=== PATIENT | male | born 1965 | race Caucasian/White ===

== ENCOUNTER 2023-05-17 03:26 | Inpatient (IN) | payer SELFPAY ==
[2023-05-17 03:53] LABS: Absolute Lymphocytes (CBC) 7.7 K/uL (0.7-4.9); Hematocrit 43.1 % (39.6-49.0); Lymphocytes % 51.1 % (15.3-44.8); MCV 89.6 fL (80-100); MPV 7.6 fL (7.6-11.3); Platelets 282 thou/uL (152-406)
[2023-05-17 03:58] LABS: Protime INR 1.11
[2023-05-17] MEDS ORDERED: MORPHINE 4 MG/ML SYR ONE (04:02)
[2023-05-17] MEDS ORDERED: ONDANSETRON 4 MG/2 ML VIAL ONE (04:02)
[2023-05-17] MEDS ORDERED: NA CHLORIDE 0.9% 1,000 ML ONE (04:02)
[2023-05-17 04:14] LABS: Albumin 3.9 g/dL (3.4-5.0); Bilirubin Direct 0.1 mg/dL (0-0.2); Bilirubin Indirect, Calculated 0.3 mg/dL (0.2-0.8); Bilirubin Total 0.4 mg/dL (0.2-1.0); Magnesium 2.2 mg/dL (1.6-2.4); Potassium 3.7 mEq/L (3.5-5.1); Protein, Total 7.5 g/dL (6.4-8.2); Troponin High Sensitivity 20.8 pg/mL (<58.9)
[2023-05-17] MEDS ORDERED: MORPHINE 2 MG/ML SYR ONE (04:28)
[2023-05-17] MEDS ORDERED: METOCLOPRAMIDE 10 MG/2mL INJ ONE (04:29)
--- NOTE | 2023-05-17 06:35 | EDPHYS ---
Physician Documentation [facility] Name: Evangelist Torrez Age: 57 yrs Sex: Male : 1965 Arrival Date: 05/17/2023 Time: 03:26 Bed 17 Private MD: ED Physician Colby Shankar HPI: 05/17 04:03 This 57 yrs old Male presents to ER via Unassigned with complaints of Chest sp4 Pain, Nausea/Vomiting, Dizziness. 06:36 57-year-old male presents with acute onset of chest pain starting 2 hours prior to sp4 arrival associated with nausea vomiting and dizziness. Patient is here visiting from [facility]. Patient generally goes to [facility] in [facility]. Patient has history of coronary artery disease and 5 prior stents last stent placed in 2019 in [place]. Patient states he takes aspirin 81 mg daily and Eliquis 5 mg p.o. twice daily. Patient states pain is midsternal and it has burning component. Patient denies shortness of breath or diaphoresis.. Historical: - Allergies: 03:59 Sulfa (Sulfonamide Antibiotics); ha1 - PMHx: 06:44 HIV positive; ha1 - Immunization history:: Adult Immunizations unknown. - Social history:: Patient/guardian denies using alcohol, street drugs, IV drugs, caffeine, over the counter diet medications, tobacco products, Smoking status: unknown. - Family history:: not pertinent. ROS: 06:36 Constitutional: Negative for fever, chills, and weight loss, Cardiovascular: Positive sp4 for chest pain, negative for palpitations 06:36 All other systems are negative, Exam: 06:36 Constitutional: This is a well developed, well nourished patient who is awake, alert, sp4 uncomfortable appearing male. Head/Face: Normocephalic, atraumatic. Eyes: Pupils equal round and reactive to light, extra-ocular motions intact. Lids and lashes normal. Conjunctiva and sclera are not injected. Cornea within normal limits. Periorbital areas with no swelling, redness, or edema. ENT: Nares patent. No nasal discharge, no septal abnormalities noted. Tympanic membranes are normal and external auditory canals are clear. Oropharynx with no redness, swelling, or masses, exudates, or evidence of obstruction, uvula midline. Mucous membranes moist. Neck: Trachea midline, no thyromegaly or masses palpated, and no cervical lymphadenopathy. Supple, full range of motion without nuchal rigidity, or vertebral point tenderness. Chest/axilla: Normal chest wall appearance and motion. Nontender with no deformity. No lesions are appreciated. Cardiovascular: Regular rate and rhythm with a normal S1 and S2. No gallops, murmurs, or rubs. Normal PMI, no JVD. No pulse deficits. Respiratory: Lungs have equal breath sounds bilaterally, clear to auscultation and percussion. No rales, rhonchi or wheezes noted. No increased work of breathing, no retractions or nasal flaring. Abdomen/GI: Soft, non-tender, with normal bowel sounds. No distension or tympany. No guarding or rebound. No evidence of tenderness throughout. Back: No spinal tenderness. No costovertebral tenderness. Skin: Warm, dry with normal turgor. Normal color with no rashes, no lesions, and no evidence of cellulitis. MS/ Extremity: Pulses equal, no cyanosis. Neurovascular intact. Full, normal range of motion. Neuro: Awake and alert, GCS 15, oriented to person, place, time, and situation. Cranial nerves II-XII grossly intact. Motor strength 5/5 in all extremities. Sensory grossly intact. Psych: Awake, alert, with orientation to person, place and time. Behavior, mood, and affect are within normal limits 06:36 ECG was reviewed by the Attending Physician. EKG at 0 337 reveals sinus bradycardia at sp4 the rate of 45, otherwise no ectopy, no ST elevation or depression. Vital Signs: 03:50 BP 145 / 89; Pulse 49; Resp 19 S; Temp 98.5; Pulse Ox 100% on R/A; ha1 04:15 BP 154 / 87; Pulse 48; Resp 18 S; Pulse Ox 100% ; ha1 05:15 BP 162 / 96; Pulse 53; Resp 18 S; Pulse Ox 96% on R/A; ha1 06:15 BP 159 / 88; Pulse 53; Resp 18 S; Pulse Ox 96% on R/A; ha1 06:42 Weight 95.25 kg; Height 6 ft. 1 in. ; ha1 07:19 BP 167 / 98; Pulse 56; Resp 18; Pulse Ox 97% on R/A; tf2 08:00 BP 152 / 86; Pulse 58; Resp 17; Pulse Ox 95% on R/A; tf2 09:00 BP 141 / 95; Pulse 47; Resp 16; Pulse Ox 96% on R/A; tf2 10:00 BP 156 / 96; Pulse 47; Resp 16; Pulse Ox 96% ; tf2 11:00 BP 151 / 88; Pulse 56; Resp 15; Pulse Ox 96% on R/A; tf2 13:00 BP 115 / 72; Pulse 47; Resp 15; Pulse Ox 97% on R/A; tf2 06:42 Body Mass Index 27.71 (95.25 kg, 185.42 cm) ha1 MDM: 04:04 Patient medically screened. sp4 06:29 ED course: CT - TECHNIQUE: CT CHESTABDOMEN PELVIS ANGIOGRAPHYWITH IV CONTRAST on sp4 05/17/2023 4:11 AM CDT. MIPS reconstructions were generated. This exam was performed according to our departmental dose-optimization program, which includes automated exposure control, adjustment of the mA and/or kV according to patient size and/or use of iterative reconstruction technique. FINDINGS: Vascular: Thoracic aorta is normal in course and caliber without aneurysm or dissection. Pulmonary arteries are adequately opacified without acute or chronic filling defects. Abdominal aorta is extensively atherosclerotic without aneurysm. There are stents within both common iliac arteries. The right stent extends into the right external iliac artery. Pelvic arteries are patent without aneurysm or occlusion. Chest: The heart is normal in size. There is no pericardial effusion. Intrathoracic lymph nodes are not enlarged. There is no pleural effusion, pleural thickening or pneumothorax. Central airways are patent. There is mild upper lung centrilobular emphysema. Abdomen: Liver is fatty in attenuation. There is no biliary dilatation. Gallbladder is normal in appearance. The pancreas and spleen are normal in appearance. The adrenal glands and kidneys are unremarkable. There is no free air. There is no retroperitoneal adenopathy. Pelvis: There is no bowel obstruction. Urinary bladder is unremarkable. There is no free fluid. Appendix is normal. Skeleton: There are no acute osseous findings. No suspicious bony lesions. IMPRESSION: No aortic dissection or aneurysm. No pulmonary embolus. No definite acute inflammatory process. . 06:40 Differential diagnosis: abnormal EKG, acute myocardial infarction, acute pericarditis, sp4 anxiety, coronary artery disease chest wall pain, congestive heart failure cholecystitis. HEART Score: History: Highly Suspicious (2), ECG: Normal (0), Age: > 45 and < 65 years (1), Risk Factors: > or = 3 Risk factors for atherosclerotic disease (2), [Hypercholesterolemia] [Hypertension] Troponin: < or = 1 x Normal Limit (0), Total Score = 5. The patient was given aspirin in the Emergency Department. Data reviewed: vital signs, nurses notes, lab test result(s), EKG, radiologic studies, CT scan, plain films. ED course: COMPARISON: None. TECHNIQUE: XR CHEST 1 VIEW 05/17/2023 3:39 AM CDT FINDINGS: The heart is enlarged. Lungs are clear without consolidation, atelectasis, mass or edema. There is no pleural effusion. There is no pneumothorax. There are no acute osseous findings. IMPRESSION: Clear lungs. . 06:42 ED course: Patient warrants repeat troponin and admission for rule out ACS. sp4 05/17 03:39 Order name: Basic Metabolic Panel; Complete Time: 04:15 la1 05/17 03:39 Order name: CBC with Diff; Complete Time: 04:13 la1 05/17 03:39 Order name: LFT's; Complete Time: 04:15 la1 05/17 03:39 Order name: Magnesium; Complete Time: 04:15 la1 05/17 03:39 Order name: NT PRO-BNP; Complete Time: 04:15 la1 05/17 03:39 Order name: PT-INR; Complete Time: 04:13 la1 05/17 03:39 Order name: Troponin HS; Complete Time: 04:15 la1 05/17 06:36 Order name: Lipase; Complete Time: 14:36 sp4 05/17 06:36 Order name: Troponin High Sensitivity; Complete Time: 14:36 sp4 05/17 08:30 Order name: Basic Metabolic Panel EDMS 05/17 08:30 Order name: Basic Metabolic Panel EDMS 05/17 08:30 Order name: Basic Metabolic Panel EDMS 05/17 08:30 Order name: CBC with Automated Diff EDMS 05/17 08:30 Order name: CBC with Automated Diff EDMS 05/17 08:30 Order name: CBC with Automated Diff EDMS 05/17 08:30 Order name: Magnesium EDMS 05/17 08:30 Order name: Magnesium EDMS 05/17 08:30 Order name: Magnesium EDMS 05/17 08:30 Order name: Phosphorus EDMS 05/17 08:30 Order name: Phosphorus EDMS 05/17 08:30 Order name: Phosphorus EDMS 05/17 08:30 Order name: Troponin High Sensitivity; Complete Time: 14:36 EDMS 05/17 08:32 Order name: Phosphorus; Complete Time: 14:36 EDMS 05/17 12:41 Order name: PTT, Activated Partial Thromb; Complete Time: 14:36 EDMS 05/17 14:36 Order name: Lipid Profile; Complete Time: 14:36 EDMS 05/17 14:36 Order name: Thyroid Stimulating Hormone; Complete Time: 14:36 EDMS 05/17 03:39 Order name: XRAY Chest (1 view); Complete Time: 14:36 la1 05/17 04:11 Order name: CT Aorta for Dissection; Complete Time: 14:36 sp4 05/17 03:39 Order name: EKG; Complete Time: 03:40 la1 05/17 08:02 Order name: CONS Physician Consult EDCO 05/17 03:39 Order name: Cardiac monitoring; Complete Time: 03:47 la1 05/17 03:39 Order name: EKG - Nurse/Tech; Complete Time: 03:47 la1 05/17 03:39 Order name: IV Saline Lock; Complete Time: 03:47 la1 05/17 03:39 Order name: Labs collected and sent; Complete Time: 03:47 la1 05/17 03:39 Order name: O2 Per Protocol; Complete Time: 03:54 la1 05/17 03:39 Order name: O2 Sat Monitoring; Complete Time: 03:54 la1 EC:36 Rate is 48 beats/min. Rhythm is regular, Sinus bradycardia. QRS [place] is Normal. MA sp4 interval is normal. QRS interval is normal. QT interval is normal. No Q waves. T waves are Normal. No ST changes noted. Clinical impression: No evidence of ischemia. Interpreted by me. Administered Medications: 03:48 Drug: Ondansetron IVP 4 mg IVP once; over 2 minutes Route: IVP; Site: right antecubital;ha1 04:00 Follow up: Response: No adverse reaction ha1 03:48 Drug: NS 0.9% IV 1000 ml IV at 1000 ml once Route: IV; Rate: 1000 ml; Site: right ha1 antecubital; 06:00 Follow up: Response: No adverse reaction; IV Status: Completed infusion; IV Intake: ha1 1000ml 03:50 Drug: morphine IVP or IV 4 mg IVP once over 4 mins Route: IVP; Infused Over: 4 mins; ha1 Site: right antecubital; 04:00 Follow up: Response: No adverse reaction; Pain is decreased; RASS: Alert and Calm (0) ha1 04:18 Drug: metoCLOPramide IVP 10 mg IVP once; over 1 to 2 minutes Route: IVP; Site: right ha1 antecubital; 05:00 Follow up: Response: No adverse reaction ha1 04:20 Drug: morphine IVP or IV 2 mg IVP once over 4 mins Route: IVP; Infused Over: 4 mins; ha1 Site: right antecubital; 04:50 Follow up: Response: No adverse reaction; Pain is decreased; RASS: Alert and Calm (0) ha1 06:55 Drug: Aspirin PO Chewable Tablet 324 mg PO once; 81 mg tablets x 4 Route: PO; ha1 07:05 Follow up: Response: No adverse reaction ha1 06:55 Drug: Enoxaparin Sub-Q 1 mg/kg Sub-Q once Route: Sub-Q; Site: abdomen; ha1 07:05 Follow up: Response: No adverse reaction ha1 Disposition Summary: 05/17/23 06:35 Hospitalization Ordered Notes: Hospitalization Status: Observation sp4 Condition: Stable sp4 Problem: new sp4 Symptoms: have improved sp4 Bed/Room Type: Standard sp4 Provider: Doe Reyes(05/17/23 06:59) sp4 Location: [facility] ER [facility](05/17/23 10:05) jl7 [facility] 7 Diagnosis - Acute angina pectoris sp4 Forms: - Medication Reconciliation Form sp4 - SBAR form sp4 - Leadership Thank You Letter sp4 Signatures: Dispatcher [employer] EDShon Serna FNP-C ACCOUNT REPRESENTATIVE-Cla1 Darren Page RN RN jl7 Argenis Saunders RN RN ha1 Sandhya Morrison PA-C PA-C sb4 Colby Shankar MD MD sp4 Corrections: (The following items were deleted from the chart) 06:59 06:35 Robert Beckham sp4 sp4 10:05 06:35 Telemetry/MedSurg (observation) sp4 jl7 10:05 06:35 sp4 jl7
--- NOTE | 2023-05-17 06:35 | ER ---
Nurse's Notes [facility] Name: Evangelist Torrez Age: 57 yrs Sex: Male : 1965 Arrival Date: 05/17/2023 Time: 03: Bed 17 Private MD: Diagnosis: Acute angina pectoris Presentation: 05/17 03:31 Ebola Screen: No symptoms or risks identified at this time. Initial Sepsis Screen: Does ha1 the patient meet any 2 criteria? No. Patient's initial sepsis screen is negative. Does the patient have a suspected source of infection? No. Patient's initial sepsis screen is negative. Risk Assessment: Do you want to hurt yourself or someone else? Patient reports no desire to harm self or others. Onset of symptoms was May 17, 2023. 03: Acuity: HARSHA 3 ha1 03:31 Chief complaint: Patient states: I have a severe chest pain that started an hour ago. ha1 the pain feels like when I had my previous NV. 03:31 Coronavirus screen: Vaccine status: Patient reports being unvaccinated. ha1 03:31 Method Of Arrival: Wheelchair ha1 Triage Assessment: 03:31 General: Appears uncomfortable. General: Behavior is cooperative, anxious. Pain: ha1 Complains of pain in chest Pain does not radiate. Pain currently is 9 out of 10 on a pain scale. Quality of pain is described as pressure, throbbing, Pain began suddenly, 1 hour ago. Neuro: Level of Consciousness is awake, alert, obeys commands, Oriented to person, place, time, situation. Neuro: Reports dizziness. Cardiovascular: Reports chest pain, Heart tones S1 S2 present Capillary refill < 3 seconds Patient's skin is warm and dry. Rhythm is sinus bradycardia Chest pain began suddenly, 1 hour prior to arrival. Respiratory: Airway is patent Respiratory effort is even, unlabored, Respiratory pattern is regular, symmetrical. GI: Abdomen is round distended, Reports nausea, vomiting. GI:. : No signs and/or symptoms were reported regarding the genitourinary system. Derm: Skin is intact, Skin is diaphoretic, Skin is normal. Musculoskeletal: Circulation, motion, and sensation intact. Historical: - Allergies: 03:59 Sulfa (Sulfonamide Antibiotics); ha1 - PMHx: 06:44 HIV positive; ha1 - Immunization history:: Adult Immunizations unknown. - Social history:: Patient/guardian denies using alcohol, street drugs, IV drugs, caffeine, over the counter diet medications, tobacco products, Smoking status: unknown. - Family history:: not pertinent. Screenin:57 Abuse screen: Denies threats or abuse. Denies injuries from another. Nutritional ha1 screening: No deficits noted. Tuberculosis screening: No symptoms or risk factors identified. Assessment: 03:31 Reassessment: SEE TRIAGE ASSESSMENT. ha1 04:00 Reassessment: Patient and/or family updated on plan of care and expected duration. Pain ha1 level reassessed. Patient is alert, oriented x 3, equal unlabored respirations, skin warm/dry/pink. 05:00 Reassessment: Patient and/or family updated on plan of care and expected duration. Pain ha1 level reassessed. Patient is alert, oriented x 3, equal unlabored respirations, skin warm/dry/pink. PAIN 3/10 Patient states feeling better. Patient states symptoms have improved. 06:00 Reassessment: Patient and/or family updated on plan of care and expected duration. Pain ha1 level reassessed. Patient is alert, oriented x 3, equal unlabored respirations, skin warm/dry/pink. 06:40 Reassessment: Patient and/or family updated on plan of care and expected duration. Pain ha1 level reassessed. Patient is alert, oriented x 3, equal unlabored respirations, skin warm/dry/pink. pain 5/10 Patient states feeling better. Patient states symptoms have improved. 07:21 General: Appears in no apparent distress. tf2 07:21 Pain: Complains of pain in chest Pain currently is 3 out of 10 on a pain scale. Neuro: tf2 No deficits noted. Cardiovascular: Rhythm is sinus bradycardia. Respiratory: No deficits noted. GI: No deficits noted. : No deficits noted. EENT: No deficits noted. Musculoskeletal: No deficits noted. Vital Signs: 03:50 BP 145 / 89; Pulse 49; Resp 19 S; Temp 98.5; Pulse Ox 100% on R/A; ha1 04:15 BP 154 / 87; Pulse 48; Resp 18 S; Pulse Ox 100% ; ha1 05:15 BP 162 / 96; Pulse 53; Resp 18 S; Pulse Ox 96% on R/A; ha1 06:15 BP 159 / 88; Pulse 53; Resp 18 S; Pulse Ox 96% on R/A; ha1 06:42 Weight 95.25 kg; Height 6 ft. 1 in. ; ha1 07:19 BP 167 / 98; Pulse 56; Resp 18; Pulse Ox 97% on R/A; tf2 08:00 BP 152 / 86; Pulse 58; Resp 17; Pulse Ox 95% on R/A; tf2 09:00 BP 141 / 95; Pulse 47; Resp 16; Pulse Ox 96% on R/A; tf2 10:00 BP 156 / 96; Pulse 47; Resp 16; Pulse Ox 96% ; tf2 11:00 BP 151 / 88; Pulse 56; Resp 15; Pulse Ox 96% on R/A; tf2 13:00 BP 115 / 72; Pulse 47; Resp 15; Pulse Ox 97% on R/A; tf2 06:42 Body Mass Index 27.71 (95.25 kg, 185.42 cm) ha1 ED Course: 03:28 Patient arrived in ED. [id number] 03:31 Patient has correct armband on for positive identification. Placed in gown. Bed in low ha1 position. Call light in reach. Side rails up X 1. 03:31 Client placed on continuous cardiac and pulse oximetry monitoring. NIBP monitoring ha1 applied. 03:40 Inserted saline lock: 22 gauge in right antecubital area, using aseptic technique. ha1 Blood collected. 03:54 [facility]on Ashby [facility]-C [facility] la1 03:54 Argenis Saunders RN is Primary Nurse. ha1 03:59 Triage completed. ha1 04:03 Colby Shankar MD is Attending Physician. sp4 04:31 XRAY Chest (1 view) In Process Unspecified. EDMS 04:52 CT Aorta for Dissection In Process Unspecified. EDMS 06:33 Robert Beckham MD is Hospitalizing Provider. sp4 06:59 Hospitalizing Provider role handed off by Robert Beckham MD sp4 06:59 Doe Reyes MD is Hospitalizing Provider. sp4 07:17 Primary Nurse role handed off by Argenis Saunders, MIRIAN tf2 07:17 Cheyanne Osman, MIRIAN is Primary Nurse. tf2 07:18 No apparent distress. Resting quietly. tf2 13:30 Awaiting catheter builder. tf2 Administered Medications: 03:48 Drug: Ondansetron IVP 4 mg IVP once; over 2 minutes Route: IVP; Site: right antecubital;ha1 04:00 Follow up: Response: No adverse reaction ha1 03:48 Drug: NS 0.9% IV 1000 ml IV at 1000 ml once Route: IV; Rate: 1000 ml; Site: right ha1 antecubital; 06:00 Follow up: Response: No adverse reaction; IV Status: Completed infusion; IV Intake: ha1 1000ml 03:50 Drug: morphine IVP or IV 4 mg IVP once over 4 mins Route: IVP; Infused Over: 4 mins; ha1 Site: right antecubital; 04:00 Follow up: Response: No adverse reaction; Pain is decreased; RASS: Alert and Calm (0) ha1 04:18 Drug: metoCLOPramide IVP 10 mg IVP once; over 1 to 2 minutes Route: IVP; Site: right ha1 antecubital; 05:00 Follow up: Response: No adverse reaction ha1 04:20 Drug: morphine IVP or IV 2 mg IVP once over 4 mins Route: IVP; Infused Over: 4 mins; ha1 Site: right antecubital; 04:50 Follow up: Response: No adverse reaction; Pain is decreased; RASS: Alert and Calm (0) ha1 06:55 Drug: Aspirin PO Chewable Tablet 324 mg PO once; 81 mg tablets x 4 Route: PO; ha1 07:05 Follow up: Response: No adverse reaction ha1 06:55 Drug: Enoxaparin Sub-Q 1 mg/kg Sub-Q once Route: Sub-Q; Site: abdomen; ha1 07:05 Follow up: Response: No adverse reaction ha1 Intake: 06:00 IV: 1000ml; Total: 1000ml. ha1 Outcome: 06:35 Decision to Hospitalize by Provider. sp4 14:11 Admitted to Auto Mechanic Supervisor accompanied by nurse, tf2 14:55 Patient left the ED. eb Signatures: Dispatcher [employer] EDMS Shon Ashby FNP-C CLIPMAN-Cla1 Blossom Kathleen Jennifer [id number] Argenis Saunders RN RN ha1 Colby Shankar MD MD sp4 Cheyanne Osman RN RN tf2 Corrections: (The following items were deleted from the chart) 05:32 05:31 No provider procedures requiring assistance completed. ha1 :32 05:31 IV discontinued, intact, bleeding controlled, No redness/swelling at site. ha1 Pressure dressing applied, 05:32 05:31 Patient maintains SpO2 saturation greater than 95% on room air. ha1 ha1 06:42 03:50 BP 145 / 89; Pulse 49bpm; Resp 19bpm; Spontaneous; Pulse Ox 100% RA; ha1 07:22 06:00 BP 162 / 96; Pulse 53bpm; Resp 18bpm; Spontaneous; Pulse Ox 96% RA; ha1 ha1
[2023-05-17] MEDS ORDERED: ASPIRIN 81 MG CHEWABLE TABLET ONE ×2 (07:01→07:03)
[2023-05-17] MEDS ORDERED: ENOXAPARIN 100 MG/ML SYR SQ ONE (07:01)
[2023-05-17 07:44] LABS: Troponin High Sensitivity 282.1 pg/mL (<58.9)
[2023-05-17] MEDS ORDERED: SODIUM CHLORIDE 0.9% 10ML INJ IV PRN (08:24)
[2023-05-17] MEDS ORDERED: PANTOPRAZOLE 40 MG INJ IVP ONE (08:24)
[2023-05-17] MEDS ORDERED: MORPHINE 4 MG/ML SYR IV ONE (08:24)
[2023-05-17] MEDS ORDERED: HEPARIN/D5W 25,000 UNIT/500 ML BAG IV SCH (11:00)
--- NOTE | 2023-05-17 11:15 | RAD REPORT ---
EXAM DESCRIPTION: CT - Angio Aorta For Dissection - 05/17/2023 6:10 am CLINICAL HISTORY: Chest pain COMPARISON: None. TECHNIQUE: CT CHEST ABDOMEN PELVIS ANGIOGRAPHY WITH IV CONTRAST on 05/17/2023 4:11 AM CDT. MIPS recon structions were generated. This exam was performed according to our departmental dose-optimization program, which includes autom ated exposure control, adjustment of the mA and/or kV according to patient size and/or use of iterati ve reconstruction technique. FINDINGS: Vascular: Thoracic aorta is normal in course and caliber without aneurysm or dissection. P ulmonary arteries are adequately opacified without acute or chronic filling defects. Abdominal aorta is extensively atherosclerotic without aneurysm. There are stents within both common iliac arteries. The right stent extends into the right external iliac artery. Pelvic arteries are patent without aneu rysm or occlusion. Chest: The heart is normal in size. There is no pericardial effusion. Intrathoracic lymph nodes are n ot enlarged. There is no pleural effusion, pleural thickening or pneumothorax. Central airways are patent. There i s mild upper lung centrilobular emphysema. Abdomen: Liver is fatty in attenuation. There is no biliary dilatation. Gallbladder is normal in appe arance. The pancreas and spleen are normal in appearance. The adrenal glands and kidneys are unremark able. There is no free air. There is no retroperitoneal adenopathy. Pelvis: There is no bowel obstruction. Urinary bladder is unremarkable. There is no free fluid. Appen francisca is normal. Skeleton: There are no acute osseous findings. No suspicious bony lesions. IMPRESSION: No aortic dissection or aneurysm. No pulmonary embolus. No definite acute inflammatory process. Electronically signed by: Fernando Acevedo MD 05/17/2023 5:54 AM CDT Due to temporary technical issues with the PACS/Fluency reporting system, reports are being signed by the in house radiologists without review as a courtesy to insure prompt reporting. The interpreting radiologist is fully responsible for the content of the report.
--- NOTE | 2023-05-17 11:33 | RAD REPORT ---
EXAM DESCRIPTION: RAD - Chest Single View - 05/17/2023 4:29 am CLINICAL HISTORY: CHEST PAIN COMPARISON: None. TECHNIQUE: XR CHEST 1 VIEW 05/17/2023 3:39 AM CDT FINDINGS: The heart is enlarged. Lungs are clear without consolidation, atelectasis, mass or edema. There is no pleural effusion. There is no pneumothorax. There are no acute osseous findings. IMPRESSION: Clear lungs. Electronically signed by: Fernando Acevedo MD 05/17/2023 5:50 AM CDT Due to temporary technical issues with the PACS/Fluency reporting system, reports are being signed by the in house radiologists without review as a courtesy to insure prompt reporting. The interpreting radiologist is fully responsible for the content of the report.
--- NOTE | 2023-05-17 12:47 | P.HP ---
Certification for Inpatient Patient admitted to: Inpatient With expected LOS: <2 Midnights Patient will require the following post-hospital care: None Practitioner: I am a practitioner with admitting privileges, knowledge of patient current condition, hospital course, and medical plan of care. Services: Services provided to patient in accordance with Admission requirements found in Title 42 Section 412.3 of the Code of Federal Regulations Patient History Date of Service: 05/17/23 Reason for admission: chest pain, NSTEMI History of Present Illness: Evangelist Torrez is a 57-year-old male with past medical history of hypertension, coronary artery disease, RI x2, 5 stents, history of clots, chronic pain with neuropathy, HIV positive. Patient presented to ED with severe chest pain, nausea, vomiting and dizziness. Patient generally goes to [facility] in [facility], but is visiting on vacation. Patient states he takes aspirin 81 mg daily and Eliquis 5 mg p.o. twice daily. Patient states pain is midsternal and is a burning component, with diaphoresis at home, patient denies shortness of breath. Troponin series of 282.1 and redraw of 8865.6. EKG showing bradycardia at 45 beats per minute, no ectopy, no ST elevation or depression. Initial vital signs of BP 145/89, heart rate 49 respirations 19 temperature 98.5, pulse ox 100% on room air. On examination patient was distressed and uncomfortable with little pain relief using morphine. Dr. Leon consulted and agreed for admission, PCI planned. Patient will be admitted for NSTEMI, further work-up, heart cath, and stabilization. Allergies Sulfa (Sulfonamide Antibiotics) Allergy (Verified 05/17/23 10:39) unk Home Medications: Apixaban [Eliquis] 5 mg PO BID 05/17/23 Aspirin [Aspirin EC 81 MG] 81 mg PO BID 05/17/23 Dolutegravir/Rilpivirine [Juluca 50-25 mg Tablet] 1 tab PO BEDTIME 05/17/23 - Past Medical/Surgical History -: HIV positive -: RI x 2 -: Neuropathy -: DVT -: HTN -: CAD with 5 stents -: s/p PCI with 5 stents - Social History Smoking Status: Former smoker (Quit October of 2022, smoked since 10 years old) Alcohol use: No CD- Drugs: No Caffeine use: Yes Review of Systems General: Sweats, Weakness, Malaise Eyes: Unremarkable ENT: Unremarkable Respiratory: Unremarkable Cardiovascular: Chest Pain, Light Headedness Gastrointestinal: Nausea, No Distention Genitourinary: Unremarkable Musculoskeletal: Unremarkable Integumentary: Unremarkable Neurological: Weakness Physical Examination - Physical Exam General: Alert, In no apparent distress, Oriented x3, Moderate distress HEENT: Atraumatic, Normocephalic, PERRLA Neck: Supple, 2+ carotid pulse no bruit, JVD not distended Respiratory: Clear to auscultation bilaterally, Normal air movement Cardiovascular: No edema, Normal pulses, Regular rate/rhythm, Normal S1 S2 Capillary refill: <2 Seconds Gastrointestinal: Normal bowel sounds, Soft and benign Musculoskeletal: No clubbing, No swelling, No contractures Integumentary: No rashes, No breakdown, No significant lesion Neurological: Normal gait, Normal strength at 5/5 x4 extr, Normal tone - Studies Laboratory Data (last 24 hrs) 05/17/23 05/17/23 05/17/23 07:13 07:13 03:45 WBC Hgb Hct Plt Count PT 12.2 INR 1.11 Sodium Potassium BUN Creatinine Glucose Phosphorus 2.6 Magnesium Total Bilirubin AST ALT Alkaline Phosphatase Lipase 76 H 05/17/23 05/17/23 03:45 03:45 WBC 15.10 H Hgb 15.0 Hct 43.1 Plt Count 282 PT INR Sodium 139 Potassium 3.7 BUN 17 Creatinine 1.34 H Glucose 155 H Phosphorus Magnesium 2.2 Total Bilirubin 0.4 AST 41 H ALT 93 H Alkaline Phosphatase 66 Lipase Assessment and Plan - Plan Assessment and plan NSTEMI -troponin 282.08/8864.6 -heparin gtt -lovenox given in ED -consulted Raslan with recs to admit -PCI today -brilinta, statin, asa HTN -restart home medications -monitor [id number] HIV positive -restart home medications h/o DVT -lovenox DVT ppx: brilinta Full code LOS 2 days Discharge Plan: Home Plan to discharge in: 48 Hours - Advance Directives Does patient have a Living Will: No Does patient have a Durable POA for Healthcare: No - Code Status/Comfort Care Code Status Assessed: Yes Time Spent Managing Pts Care (In Minutes): 55
--- NOTE | 2023-05-17 14:10 | EKG ---
Test Date: 2023-05-17 Test Time: 03:37:45 Wood Inspector: NAYAN MEASUREMENT RESULTS: Intervals: Rate: 48 AK: 150 QRSD: 80 QT: 436 QTc: 389 [place]: P: 51 AK: 150 QRS: 60 T: 89 INTERPRETIVE STATEMENTS: Sinus bradycardia Septal infarct, age undetermined Abnormal ECG No previous ECG available for comparison Electronically Signed On 05-17-23 14:09:30 CDT by Carson Leon
--- NOTE | 2023-05-17 14:10 | EKG ---
Test Date: 2023-05-17 Test Time: 03:59:41 Pipe Line Walker: NAYAN MEASUREMENT RESULTS: Intervals: Rate: 43 NM: 156 QRSD: 80 QT: 446 QTc: 376 [place]: P: 41 NM: 156 QRS: 49 T: 88 INTERPRETIVE STATEMENTS: Marked sinus bradycardia Abnormal ECG Compared to ECG 05/17/2023 03:37:45 Myocardial infarct finding no longer present Electronically Signed On 05-17-23 14:09:28 CDT by Carson Leon
[2023-05-17] MEDS ORDERED: FENTANYL CITR 100 MCG/2 ML ONE (14:26)
[2023-05-17] MEDS ORDERED: HEPA 1000U/500MLS 2,000 UNIT/1,000 ML BAG IV ONE (14:26)
[2023-05-17] MEDS ORDERED: VERAPAMIL HCL 10 MG/4 ML VIAL IV ONE (14:27)
[2023-05-17] MEDS ORDERED: HEPARIN 5000 UNIT/ML 1 ML VIAL ONE (14:27)
[2023-05-17] MEDS ORDERED: ASPIRIN 325 MG TAB ONE (14:27)
[2023-05-17] MEDS ORDERED: CLOPIDOGREL 75 MG TABLET ONE (14:27)
[2023-05-17] MEDS ORDERED: MIDAZOLAM HCL 2 MG/2 ML INJ ONE (14:27)
[2023-05-17] MEDS ORDERED: HEPARIN 10,000 UNIT/10 ML VIAL IV ONE (14:28)
[2023-05-17] MEDS ORDERED: TICAGRELOR 90 MG TABLET PO ONE (14:29)
[2023-05-17] MEDS ORDERED: NITROGLYCERIN 100 MCG/ML SYR (for cath lab use only) IV ONE (14:29)
[2023-05-17 14:32] LABS: Thyroid Stimulating Hormone 0.575 uIU/mL (0.358-3.740)
[2023-05-17 14:36] LABS: Troponin High Sensitivity 8865.6 pg/mL (<58.9)
[2023-05-17] MEDS ORDERED: NA CHLORIDE 0.9% 500 ML ONE (14:36)
[2023-05-17] MEDS ORDERED: FAMOTIDINE 20 MG TAB ONE (15:30)
--- NOTE | 2023-05-17 15:57 | CON ---
Date of Consultation: 05/17/2023 Reason For Consultation: Chest pain with elevated troponin. History Of Present Illness: A 57-year-old male, comes in with chest pain. It is retrosternal, press ure like, radiates to the neck and the jaw and left upper extremity, comes and goes, never went away. In the emergency room, first troponin was negative and then it went up to 282 and then 8000. The p atient is still having chest pain 08/28. He has multiple stents in his coronary arteries. There is n o nausea, vomiting, or diaphoresis. Past Medical History: Coronary artery disease, hypertension, dyslipidemia, and severe peripheral vas cular disease, status post bypass surgery in both lower extremities. Medications: Refer to reconciliation sheet for detailed list. Allergies: SULFA. Family History: No premature coronary artery disease or cancer. Social History: Does not drink or use any drugs. Review of Systems: All systems reviewed and they were negative except what mentioned in HPI. Physical Examination: Vital Signs: Reviewed. Head and Neck: Pupils are equal, reactive to light. Intact eye movements. No JVD. No cervical lym phadenopathy. Neck is supple. Thyroid is not enlarged. Lungs: Clear to auscultation bilaterally. No rhonchi, wheezing, or crackles. No accessory muscle u se. Heart: Regular rate and rhythm. No extra sounds. Abdomen: Soft, nontender. Bowel sounds positive. No organomegaly. No masses or hernia. No rigidi ty or rebound. Extremities: No edema, clubbing, or cyanosis. Intact pulses. Skin: No rash. Neurologic: Alert, awake, oriented x3. No acute focal deficits appreciated. Investigations: Troponin peaked at 8865, BUN 15, creatinine 1.34. Assessment And Recommendations: 1.Non-ST elevation myocardial infarction. I will take him urgently to the cardiac catheterization l aboratory as he is still having active chest pain. The patient received Eliquis last night. We will go radial access and I do not believe waiting on doing coronary angiogram is a good option for him d ue to active and unstable symptoms. 2.Peripheral vascular disease, severe, status post surgery in the past. 3.Hypertension. Blood pressure is controlled. 4.Dyslipidemia. Recommend Lipitor 40 mg at bedtime. SR/MODL Voice ID: [id number] Report ID: [id number]
[2023-05-17] MEDS ORDERED: FUROSEMIDE 20 MG/ 2ML VIAL ONE (16:13)
[2023-05-17] MEDS ORDERED: ONDANSETRON 4 MG/2 ML VIAL IV PRN ×2 (19:27→19:47)
--- NOTE | 2023-05-17 19:48 | OP ---
Date of Procedure: 05/17/2023 Surgeon: ASHLEIGH COHEN Procedures Performed: 1.Selective coronary angiogram. 2. heart catheterization. 3.Emergent PCI of mid left circumflex 100% occlusion. I used 2.75 x 20 mm Synergy drug-eluting sten t. 4.PCI of mid diagonal 1 branch 99% stenosis. I used 2.5 x 16 mm Synergy drug-eluting stent. Indication: Non-ST elevation myocardial infarction. Access: Right radial artery 6-Irish closed with TR band. Complications: None. Bleeding: Less than 20 mL. Description Of Procedure: After risks, benefits, alternatives were explained, the patient agreed to procedure and signed informed consent. The patient was brought into cardiac catheterization [facility] on an emergent status. I was called by the emergency room with his admission and when I evaluated him in the emergency room, he appeared to have active symptoms, sent him to the propagator laborer immediately and after he was prepped and draped in the usual sterile fashion, I accessed right radial artery usi ng pediatric micropuncture kit, placed 6-Irish Slender sheath and took a 5-Irish Andrews 4.0 catheter into the aortic root, engaged left main and then right coronary artery, took standard views and then catheter was pushed over the wire into the LV, measured the LVEDP, pullback did not record any gradi ent and then gave systemic heparin to assure ACT level above 250 throughout the procedure and then I took the EBU3.5 guide into the aortic root, engaged left main, took short Run-Through wire into the l eft circumflex and advanced through the 100% stenosis easily. It was a fresh stenosis and then I lc jose guadalupe a 2.75 x 12 mm Synergy drug-eluting stent with orthodox of LUIS-3 flow and then the wire was p ulled back and advanced into the diagonal 1 branch. The lesion in the mid diagonal branch was pre-di lated. It was 99% stenosed and it opened nicely and then I placed 2.5 x 16 mm Synergy drug-eluting s tent with excellent results. I removed the wire and the guide and the sheath, placed TR band with go od hemostasis. Findings: 1.Left main; large and normal. 2.LAD; proximal segment is normal. Mid segment long 80% stenosis. Diagonal 1 branch is large branc h, mid 99% stenosed, status post successful PCI and the rest of the LAD appears to be normal. 3.Left circumflex; very large and dominant. It has mid 100%, which is a culprit for the PR, status post successful PCI as above and then toward the distal, there is 80% stenosis and then there is 80% iSR in the stent that was placed distally and this artery supplies the entire inferior wall. The karuna gonal and the OM1 branch have proximal 99% and mid 80% stenosis. 4.RCA; very small, nondominant, diffuse 80% stenosis. 5.Elevated LVEDP of 30 mmHg. Conclusion: Severe multivessel coronary artery disease with culprit being the mid left circumflex wh ich is large and dominant vessel, status post successful PCI and also successful PCI of the diagonal 1 branch, which was 99% stenosis. Plan: 1.Aspirin, Brilinta, high-dose statin. 2.IV heparin for 48 hours. 3.Echo. 4.Staged PCI of mid LAD and distal left circ and OM1 branch will be done next week. /FIDE Voice ID: [id number] Report ID: [id number]
[2023-05-17 20:07] VITALS: BMI 28.1
[2023-05-17] MEDS: TICAGRELOR 90 MG TABLET PO SCH (21:00)
[2023-05-17] MEDS: ATORVASTATIN 40 MG TAB PO SCH (21:00)
[2023-05-17] MEDS: DOLUTEGRAVIR PO SCH (21:00)
[2023-05-17] MEDS: RILPIVIRINE PO SCH (21:00)
[2023-05-18 05:33] LABS: Absolute Lymphocytes (CBC) 4.4 K/uL (0.7-4.9); Hematocrit 41.3 % (39.6-49.0); MPV 7.8 fL (7.6-11.3); Platelets 269 thou/uL (152-406); RBC Red Blood Cell Count 4.64 M/uL (4.33-5.43)
[2023-05-18 05:50] LABS: Magnesium 2.1 mg/dL (1.6-2.4); Phosphorus 3.6 mg/dL (2.5-4.9); Potassium 3.8 mEq/L (3.5-5.1)
--- NOTE | 2023-05-18 07:07 | P.PN ---
Date of Service: 05/18/23 Subjective: s/p cath / PCI yesterday Feeling better today denies chest pain R hand swollen, discomfort - pressure band still on due to ongoing ooze when removed heparin gtt not started yet d/t bleed at insertion site ROS: 10 point ROS as noted above, otherwise negative Physical Exam: GEN: Alert, oriented, NAD HEENT: Normal conjunctiva, sclera anicteric CV: Regular rate and rhythm, no edema Pulm: Nonlabored respirations on 2L NC, clear bilaterally ABD: Soft, nontender, nondistended Integumentary: R hand with slight edema Neuro: Normal speech, normal affect vitals reviewed Problem List: NSTEMI, severe multivessel CAD, s/p PCIx2 (05/17) Hypertension HIV positive h/o DVT NSTEMI severe multivessel CAD, s/p PCIx2 (05/17) s/p cath with severe multivessel CAD (LAD 99%, Left circumflex 100%, RCA 80%) , s/p PCIx2 (05/17). continue brilinta, statin, aspirin 81mg tentative PCI of mid LAD and distal left circ and OM1 branch will be done next week per Dr. Leon echo ordered for Saturday IV heparin for 48 hours post-op EZ band in place - heparin gtt not started yet d/t bleed at insertion site; restart per Dr. Leon Hypertension HIV positive confirm home medications, restart as appropriate VTE: heparin gtt not started yet d/t bleed at insertion site Code: Full Dispo: Home, 2-3 days
[2023-05-18] MEDS: ASPIRIN EC 81 MG TAB PO SCH (08:19)
[2023-05-18] MEDS: TICAGRELOR 90 MG TABLET PO SCH ×2 (10:01→21:07)
[2023-05-18] MEDS: ATORVASTATIN 40 MG TAB PO SCH (21:00)
[2023-05-18] MEDS: DOLUTEGRAVIR PO SCH (21:00)
[2023-05-18] MEDS: RILPIVIRINE PO SCH (21:00)
[2023-05-19 03:43] LABS: Absolute Lymphocytes (CBC) 4.7 K/uL (0.7-4.9); Hematocrit 41.9 % (39.6-49.0); Lymphocytes % 39.2 % (15.3-44.8); MCV 89.6 fL (80-100); MPV 8.1 fL (7.6-11.3); Platelets 267 thou/uL (152-406); RBC Red Blood Cell Count 4.68 M/uL (4.33-5.43)
[2023-05-19] MEDS: TICAGRELOR 90 MG TABLET PO SCH ×2 (08:49→20:36)
[2023-05-19] MEDS: ASPIRIN EC 81 MG TAB PO SCH (08:49)
--- NOTE | 2023-05-19 14:39 | PN ---
Date of Progress Note: 05/19/2023 Subjective: Seen by bedside. Clinically doing well. No chest pain. Review of Systems: No chest pain, shortness of breath, orthopnea, cough. No nausea, vomiting, diarrhea. All other syst ems reviewed and they were negative. Physical Examination: Vital Signs: Reviewed. Head and Neck: Pupils are equal, reactive to light. Intact eye movements. No JVD. No cervical lym phadenopathy. Neck is supple. Thyroid is not enlarged. Lungs: Clear to auscultation bilaterally. No rhonchi, wheezing, or crackles. No accessory muscle u se. Heart: Regular rate and rhythm. No extra sounds. Abdomen: Soft, nontender. Bowel sounds positive. No organomegaly. No masses or hernia. No rigidi ty or rebound. Extremities: No edema, clubbing, or cyanosis. Intact pulses. Skin: No rash. Neurologic: Alert, awake, oriented x3. No acute focal deficits appreciated. Investigations: Labs were reviewed. Assessment And Recommendations: 1.Acute non-ST elevation myocardial infarction status post PCI of the circ and the diagonal. Needs PCI of the LAD. We will plan on doing it this week. Continue Brilinta and aspirin. 2.Dyslipidemia. Continue statin. SR/MODL Voice ID: [id number] Report ID: [id number]
--- NOTE | 2023-05-19 15:11 | P.PN ---
Subjective Date of Service: 05/19/23 Chief Complaint: chest pain, NSTEMI Subjective: Tolerating diet, Doing well Evangelist is a wake and cheerful this AM. TR band to right wrist removed earlier this AM, swelling has reduced and is able to use hand but will keep it propped up on a pillow with minimal use to reduce bleeding. Dr. Leon plans for another heart catheterization some time this week. Patient denies fever, chills, CP, SOB, UMANA, dizziness, and abdominal pain. <Sherron Hidalgo - Last Filed: 05/19/23 16:00> Date of Service: 05/19/23 <Doe Reyes - Last Filed: 05/19/23 16:08> Review of Systems 10-point ROS is otherwise unremarkable Other: weakness to right upper extremity <Sherron Hidalgo - Last Filed: 05/19/23 16:00> Physical Examination - Vital Signs Temperature: 97.9 F Blood Pressure: 104/76 Pulse: 64 Respirations: 18 Pulse Ox (%): 97 - Physical Exam General: Alert, In no apparent distress, Oriented x3 HEENT: Atraumatic, Normocephalic, PERRLA Neck: Supple, 2+ carotid pulse no bruit, JVD not distended Respiratory: Clear to auscultation bilaterally, Normal air movement Cardiovascular: No edema, Normal pulses, Regular rate/rhythm, Normal S1 S2 Capillary refill: <2 Seconds Gastrointestinal: Normal bowel sounds, Hyperactive Musculoskeletal: No clubbing, Swelling (to right upper extremity) Integumentary: No rashes, No breakdown Neurological: Normal speech, Abnormal strength (to right upper extremity) <Sherron Hidalgo - Last Filed: 05/19/23 16:00> Assessment And Plan - Plan Assessment and plan Problem List: NSTEMI, severe multivessel CAD, s/p PCIx2 (05/17) Hypertension HIV positive h/o DVT NSTEMI severe multivessel CAD, s/p PCIx2 (05/17) s/p cath with severe multivessel CAD (LAD 99%, Left circumflex 100%, RCA 80%) , s/p PCIx2 (05/17). continue brilinta, statin, aspirin 81mg tentative PCI of mid LAD and distal left circ and OM1 branch will be done next week per Dr. Leon echo ordered for Saturday IV heparin for 48 hours post-op EZ band in place - heparin gtt not started yet d/t bleed at insertion site; restart per Dr. Leon -requires another heart catheterization before discharge, Edward to schedule HTN -restart home medications when appropriate -monitor [id number] HIV positive -Patient taking his own medication h/o DVT -lovenox- hold VTE: heparin gtt not started yet d/t bleed at insertion site Code: Full Dispo: Home, 2-3 days Discharge Plan: Home Plan to discharge in: Greater than 2 days Time Spent Managing PTS Care (In Minutes): 35 <Sherron Hidalgo - Last Filed: 05/19/23 16:00> - Plan Patient seen on rounds Plan of care reviewed and agree with MULTIMEDIA ENGINEER Rocky as noted above Improving echo tomorrow staged PCI prior to discharge <Doe Reyes - Last Filed: 05/19/23 16:08>
[2023-05-19] MEDS: DOLUTEGRAVIR PO SCH (20:37)
[2023-05-19] MEDS: RILPIVIRINE PO SCH (20:37)
[2023-05-19] MEDS: ATORVASTATIN 40 MG TAB PO SCH (20:37)
[2023-05-20 03:30] LABS: Albumin 3.4 g/dL (3.4-5.0); Phosphorus 3.4 mg/dL (2.5-4.9); Potassium 4.2 mEq/L (3.5-5.1)
[2023-05-20] MEDS: TICAGRELOR 90 MG TABLET PO SCH ×2 (09:56→20:05)
[2023-05-20] MEDS: ASPIRIN EC 81 MG TAB PO SCH (09:56)
[2023-05-20 12:32] LABS: Magnesium 2.3 mg/dL (1.6-2.4); Phosphorus 3.6 mg/dL (2.5-4.9); Uric Acid 7.1 mg/dL (3.5-7.2)
[2023-05-20] MEDS: ATORVASTATIN 40 MG TAB PO SCH (20:06)
[2023-05-20] MEDS: DOLUTEGRAVIR PO SCH (20:06)
[2023-05-20] MEDS: RILPIVIRINE PO SCH (20:06)
--- NOTE | 2023-05-20 22:46 | P.PN ---
Date of Service: 05/20/23 please refer to WERO Hidalgo's note on 05/20 for further detail briefly S: doing well; no chest pain, no swelling. awaiting 2nd cath O: labs stable, Cr elevated but stable A/P: NSTEMI s/p PCI, HTN, HIV+, h/o DVT, h/o PAD s/p fem-pop bypass echo continue aspirin/brilinta, stating needs 2nd cath to address LAD per Dr. Leon pt states brilinta is >$500, but can afford plavix asking what to do about his eliquis - states was taking for fem-pop bypass on further discussion states he had DVTs in b/l legs messaged Dr. Leon regarding recs on aspiring/brilinta vs plavix / eliquis and timing of next cath
--- NOTE | 2023-05-21 01:59 | CON ---
Date of Consultation: 05/20/2023 Reason For Consultation: The patient was admitted to the hospital for [id number] myocardial in [facility]. He presented with chest pain. He was found to have elevated troponin level and Nephrology consultation is requested for abnormal renal function test. History Of Present Illness: The patient is a 57-year-old male with a past medical history of hyperte nsion, coronary artery disease, myocardial infarction x2 and 5 stents, history of chronic pain with p eripheral neuropathy, and HIV positive. The patient presents to the emergency department with severe chest pain, nausea, vomiting, and dizziness. The patient generally goes to [facility] in [place], [place], but he is visiting on vacation. The patient stated that he took aspirin 81 mg and he has been taking aspirin 81 mg daily and Eliquis 5 mg twice a day. The patient stated that chest pain was mid sternal and had burning component associated with diaphoresis and shortness of br eath. Troponin series was done and it was elevated. Cardiology is consulted. The patient had also bradycardia with heart rate of 45. No ST-elevation or depression on EKG. Blood pressure was 145/88 and heart rate 49. The patient denies lower urinary tract symptoms. Occasionally, he has leg swelli ng. He denies dysuria or hematuria. Review of Systems: General: Denies fever or chills. Eyes: Denies vision changes. Ear, Nose, Mouth, and Throat: Denies sore throat or earache. Respiratory: Denies PND or orthopnea. Cardiovascular: Denies palpitation, although he presented to the hospital when he had luiz st pain. GI: Denies nausea or vomiting. : Denies dysuria or hematuria. All other systems reviewed and all are negative. Past Medical History: HIV positive, myocardial infarction x2, coronary artery disease with 5 stents, hypertension, DVT, status post PCI with 5 stents. Social History: Former smoker, quit in October of 2022, used to smoke for 12 years. Denies alcohol. Denies drugs. Physical Examination: General: The patient is awake, alert, follows commands. Eyes: Anicteric sclerae. EOMI. Ears, Nose, Mouth, and Throat: Oral mucosa moist. No pallor. Neck: Supple. No bruits. Lungs: Diminished breath sounds at bases. Heart: S1, S2. Abdomen: Soft, benign, nontender. No rebound. No guarding Extremities: No edema. No clubbing. No cyanosis. Neurologic: Moving extremities. Cranial nerves intact. Laboratory Work: INR 1.11, PT 12.2. Phosphorus 2.6. Lipase 76. WBC 15.1, hemoglobin 15.0, hematoc rit 43.1. Sodium 139, potassium 3.7, chloride is pending, , magnesium 2.2. Total bilirubi n 0.4, AST , ALT 93. Impression And Plan: 1.ST-elevation myocardial infarction. Cardiology consultation was obtained. The patient was on hep eusebio drip. Currently, he is on Lovenox. 2.Human immunodeficiency virus positive per primary team. 3.Abnormal renal function test. The patient will have renal ultrasound with Doppler to evaluate for possible urinary retention and bladder dysfunction. 4.Hypertension. Continue current blood pressure medication. 5.Leukocytosis. Recommend to check blood cultures and urine culture. 6.Fatigue per Primary Team and Cardiology. MARYSE/FIDE Voice ID: [id number] Report ID: [id number]
[2023-05-21 03:22] LABS: Potassium 4.3 mEq/L (3.5-5.1)
--- NOTE | 2023-05-21 05:42 | P.PN ---
Subjective Date of Service: 05/21/23 Chief Complaint: chest pain, NSTEMI Subjective: No new changes 05/19: Evangelist is a wake and cheerful this AM. TR band to right wrist removed earlier this AM, swelling has reduced and is able to use hand but will keep it propped up on a pillow with minimal use to reduce bleeding. Dr. Leon plans for another heart catheterization some time this week. Patient denies fever, chills, CP, SOB, UMANA, dizziness, and abdominal pain. 05/20:Evangelist is feeling very well this morning, right hand and arm with normal ROM and swelling decreased, pulse 2+. He is NPO this AM, will follow along with Dr. Leon's recommendations. Evangelist denies fever, chills, CP, SOB, UMANA, and dizziness. Review of Systems 10-point ROS is otherwise unremarkable Physical Examination - Vital Signs Temperature: 98.1 F Blood Pressure: 113/59 Pulse: 64 Respirations: 17 Pulse Ox (%): 96 Assessment And Plan - Plan Physical Exam General: Alert, In no apparent distress, Oriented x3 HEENT: Atraumatic, Normocephalic, PERRLA Neck: Supple, 2+ carotid pulse no bruit, JVD not distended Respiratory: Clear to auscultation bilaterally, Normal air movement Cardiovascular: No edema, Normal pulses, Regular rate/rhythm, Normal S1 S2 Capillary refill: <2 Seconds Gastrointestinal: Normal bowel sounds, Hyperactive Musculoskeletal: No clubbing, Swelling (to right upper extremity) Integumentary: No rashes, No breakdown Neurological: Normal speech, Abnormal strength (to right upper extremity) Assessment and plan Problem List: NSTEMI, severe multivessel CAD, s/p PCIx2 (05/17) Hypertension HIV positive h/o DVT NSTEMI severe multivessel CAD, s/p PCIx2 (05/17) s/p cath with severe multivessel CAD (LAD 99%, Left circumflex 100%, RCA 80%) , s/p PCIx2 (05/17). continue brilinta, statin, aspirin 81mg tentative PCI of mid LAD and distal left circ and OM1 branch will be done next week per Dr. Leon echo ordered for Saturday IV heparin for 48 hours post-op EZ band in place - heparin gtt not started yet d/t bleed at insertion site; restart per Dr. Leon -requires another heart catheterization before discharge, Edward to schedule HTN -restart home medications when appropriate -monitor [id number] HIV positive -Patient taking his own medication h/o DVT -lovenox- hold VTE: heparin gtt not started yet d/t bleed at insertion site Code: Full Dispo: Home, 2-3 days Time Spent Managing PTS Care (In Minutes): 35
[2023-05-21 06:23] LABS: Specific Gravity 1.017 (1.005-1.030); Urine Bilirubin NEGATIVE (Negative); Urine Blood Negative (Negative); Urine Clarity Clear (Clear); Urine Color Light-Yellow (Yellow); Urine Glucose NEGATIVE (Negative); Urine Protein NEGATIVE (Negative); Urine Urobilinogen Normal (Normal); Urine pH 5.5 (5.0-7.0)
[2023-05-21 06:53] LABS: UR MICROALBUMIN 0.7 mg/dL (< 1.9)
--- NOTE | 2023-05-21 07:01 | ECHO ---
HEIGHT: 6 ft 1 in WEIGHT: 213 lb 6.519 oz DATE OF STUDY: 05/20/[address]: Sherron Hidalgo NP 2-DIMENSIONAL: YES M.MODE: YES DOPPLER: YES COLOR FLOW: YES TDS: PORTABLE: YES DEFINITY: BUBBLE STUDY: DIAGNOSIS: NON ST ELEVATION MYOCARDIAL INFARCTION CARDIAC HISTORY: CATHERIZATION: YES SURGERY: NO PROSTHETIC VALVE: NO PACEMAKER: NO MEASUREMENTS (cm) DIASTOLIC (NORMALS) SYSTOLIC (NORMALS) IVSd 1.0 (0.6-1.2) LA Diam 2.8 (1.9-4.0) LVEF 57% LVIDd 4.6 (3.5-5.7) LVIDs 3.2 (2.0-3.5) %FS 30% LVPWd 1.1 (0.6-1.2) Ao Diam 2.9 (2.0-3.7) 2 DIMENSIONAL ASSESSMENT: RIGHT ATRIUM: NORMAL LEFT ATRIUM: NORMAL RIGHT VENTRICLE: NORMAL LEFT VENTRICLE: NORMAL TRICUSPID VALVE: NORMAL MITRAL VALVE: NORMAL PULMONIC VALVE: NORMAL AORTIC VALVE: NORMAL PERICARDIAL EFFUSION: NONE AORTIC ROOT: NORMAL LEFT VENTRICULAR WALL MOTION: NORMAL DOPPLER/COLOR FLOW: SEE BELOW COMMENTS: 1. NORMAL LEFT VENTRICULAR EJECTION FRACTION 55-60% 2. NORMAL WALL MOTION 3. GRADE I DIASTOLIC DYSFUNCTION TECHNOLOGIST: ESTUARDO DUMONT
[2023-05-21] MEDS: ASPIRIN EC 81 MG TAB PO SCH (07:55)
[2023-05-21] MEDS: TICAGRELOR 90 MG TABLET PO SCH ×2 (07:56→21:04)
--- NOTE | 2023-05-21 08:02 | RAD REPORT ---
EXAM DESCRIPTION: US - Abdomen Pelvis Scan US - 05/20/2023 11:43 pm CLINICAL HISTORY: ANTHONY/CKD COMPARISON: No comparisons TECHNIQUE: Sonographic grayscale and color flow images of the kidneys and bladder were obtained, a s well as spectral flow Doppler and color duplex evaluation of the renal arteries. FINDINGS: The bilateral kidneys are normal in size, the right measuring 10.1 cm in length, and the l eft measuring 10.8 cm in length. Incidentally noted right upper to midpole 1.2 cm cortical hypoattenu ating lesions suggestive of small cyst or caliceal dilation. Aortic velocity: 102.8 cm/second Right proximal renal artery: 103.8 cm/second Right mid renal artery: 79.6 cm/second Right distal renal artery: 78.5 cm/second Right renal arcuate artery resistive index: 0.69 Right renal artery / aorta ratio: 1.0 Left proximal renal artery: 70.4 cm/second Left mid renal artery: 89.04 cm/second Left distal renal artery: 56.9 cm/second Left renal arcuate artery resistive index: 0.67 Left renal artery/aorta ratio: 0.9 Normal waveforms demonstrated within the bilateral renal arteries. Bladder is suboptimally distended which somewhat limits evaluation. No focal abnormalities. Mild pros tatomegaly. IMPRESSION: No evidence of hemodynamically significant stenosis within the bilateral renal arteries.
[2023-05-21] MEDS: PANTOPRAZOLE 40MG TABLET PO SCH (11:47)
--- NOTE | 2023-05-21 15:53 | P.PN ---
Subjective Date of Service: 05/21/23 Chief Complaint: chest pain, NSTEMI Subjective: No new changes 05/19: Evangelist is a wake and cheerful this AM. TR band to right wrist removed earlier this AM, swelling has reduced and is able to use hand but will keep it propped up on a pillow with minimal use to reduce bleeding. Dr. Leon plans for another heart catheterization some time this week. Patient denies fever, chills, CP, SOB, UMANA, dizziness, and abdominal pain. 05/20:Evangelist is feeling very well this morning, right hand and arm with normal ROM and swelling decreased, pulse 2+. He is NPO this AM, will follow along with Dr. Leon's recommendations. Evangelist denies fever, chills, CP, SOB, UMANA, and dizziness. 05/21: Evangelist, awake, alert, and oriented, continues to feel well today. Waiting for the next PCI, ECHO report shows normal EF of 55-60%, normal wall motion, grade 1 diastolic dysfunction. Will continue to follow Dr. Leon's recommendations. Nephrology consulted for ANTHONY and renal ultrasound conducted showing "No evidence of hemodynamically significant stenosis within the bilatera l renal arteries". Evangelist reports walking in the hallway often. Evangelist denies fever, chills, N/V/D, CP, SOB, and UMANA. Review of Systems 10-point ROS is otherwise unremarkable Physical Examination - Vital Signs Temperature: 97.6 F Blood Pressure: 103/69 Pulse: 64 Respirations: 16 Pulse Ox (%): 97 Assessment And Plan - Plan Physical Exam General: Alert, In no apparent distress, Oriented x3 HEENT: Atraumatic, Normocephalic, PERRLA Neck: Supple, 2+ carotid pulse no bruit, JVD not distended Respiratory: Clear to auscultation bilaterally, Normal air movement Cardiovascular: No edema, Normal pulses, Regular rate/rhythm, Normal S1 S2 Capillary refill: <2 Seconds Gastrointestinal: Normal bowel sounds, Hyperactive Musculoskeletal: No clubbing Integumentary: No rashes, No breakdown Neurological: Normal speech, Abnormal strength (to right upper extremity) Assessment and plan Problem List: NSTEMI, severe multivessel CAD, s/p PCIx2 (05/17) Hypertension HIV positive h/o DVT NSTEMI severe multivessel CAD, s/p PCIx2 (05/17) s/p cath with severe multivessel CAD (LAD 99%, Left circumflex 100%, RCA 80%) , s/p PCIx2 (05/17). continue brilinta, statin, aspirin 81mg tentative PCI of mid LAD and distal left circ and OM1 branch will be done next week per Dr. Leon echo ordered for Saturday IV heparin for 48 hours post-op EZ band in place - heparin gtt not started yet d/t bleed at insertion site; restart per Dr. Leon -requires another heart catheterization before discharge, Edward to schedule HTN -restart home medications when appropriate -monitor [id number] ANTHONY -nephrology consulted -Renal ultrasound-"No evidence of hemodynamically significant stenosis within the bilateral renal arteries" -continue to monitor in AM labs HIV positive -Patient taking his own medication h/o DVT -lovenox- hold VTE: heparin gtt not started yet d/t bleed at insertion site Code: Full Dispo: Home, 2-3 days
--- NOTE | 2023-05-21 18:34 | PN ---
Date of Progress Note: 05/21/2023 Subjective: The patient was admitted to the hospital with non-ST elevation [place]. The patient undergon e CT with contrast to rule out dissection back on the . The patient's kidney function has fluctu ated, creatinine ml to 1.3 and plateaued. The patient feeling well. Physical Examination: Vital Signs: When I saw the patient; blood pressure 103/69, pulse of 64, afebrile. Chest: Clear to auscultation. Heart: S1, S2. Regular. Abdomen: Soft, nontender. Extremities: No edema. Neurologic: Alert. No focality. Laboratory Data: Sodium 134, potassium 4.3, bicarb 23, BUN 20, creatinine 1.3, calcium 8.7. Current Medications: The patient on include; 1.Aspirin. 2.Brilinta. 3.Atorvastatin. 4.Pantoprazole. Assessment And Plan: 1.Acute kidney injury secondary to contrast induced. The patient tolerated the contrast without any consequences. No activity in the urine. Creatinine stable. We passed more than 48 hours. The pat ient cleared from the Renal standpoint. 2.Hypertension, controlled, optimal. 3.HIV as by primary. 4.Non-ST elevation myocardial infarction as by primary and Cardiology. MANNY/FIDE Voice ID: [id number] Report ID: [id number]
[2023-05-21] MEDS: RILPIVIRINE PO SCH (21:00)
[2023-05-21] MEDS: ATORVASTATIN 40 MG TAB PO SCH (21:00)
[2023-05-21] MEDS: DOLUTEGRAVIR PO SCH (21:00)
[2023-05-22] MEDS: PANTOPRAZOLE 40MG TABLET PO SCH (06:21)
[2023-05-22 08:31] LABS: Absolute Lymphocytes (CBC) 4.5 K/uL (0.7-4.9); Hematocrit 43.3 % (39.6-49.0); Lymphocytes % 43.6 % (15.3-44.8); MPV 7.9 fL (7.6-11.3); Platelets 289 thou/uL (152-406); RBC Red Blood Cell Count 4.81 M/uL (4.33-5.43)
[2023-05-22 08:45] LABS: Magnesium 2.3 mg/dL (1.6-2.4); Phosphorus 3.5 mg/dL (2.5-4.9); Potassium 4.9 mEq/L (3.5-5.1)
[2023-05-22] MEDS: TICAGRELOR 90 MG TABLET PO SCH ×2 (09:10→20:50)
--- NOTE | 2023-05-22 14:04 | P.PN ---
Subjective Date of Service: 05/22/23 Chief Complaint: chest pain, NSTEMI 05/19: Evangelist is a wake and cheerful this AM. TR band to right wrist removed earlier this AM, swelling has reduced and is able to use hand but will keep it propped up on a pillow with minimal use to reduce bleeding. Dr. Leon plans for another heart catheterization some time this week. Patient denies fever, chills, CP, SOB, UMANA, dizziness, and abdominal pain. 05/20:Evangelist is feeling very well this morning, right hand and arm with normal ROM and swelling decreased, pulse 2+. He is NPO this AM, will follow along with Dr. Leon's recommendations. Evangelist denies fever, chills, CP, SOB, UMANA, and dizziness. 05/21: Evangelist, awake, alert, and oriented, continues to feel well today. Waiting for the next PCI, ECHO report shows normal EF of 55-60%, normal wall motion, grade 1 diastolic dysfunction. Will continue to follow Dr. Leon's recommend ations. Nephrology consulted for ANTHONY and renal ultrasound conducted showing "No evidence of hemodynamically significant stenosis within the bilateral renal arteries". Evangelist reports walking in the hallway often. Evangelist denies fever, chills, N/V/D, CP, SOB, and UMANA. 05/22: Evangelist is awake and oriented, no c/o of chest pain but feels he is having acid reflux and some SOB since his heart cath procedure 05/17, telemetery monitoring, Ambulating in the hallway several times daily. He denies CP, fever, chills, UMANA, dizziness, PND, and orthopnea. Review of Systems 10-point ROS is otherwise unremarkable Physical Examination - Vital Signs Temperature: 97.1 F Blood Pressure: 112/73 Pulse: 62 Respirations: 18 Pulse Ox (%): 98 Assessment And Plan - Plan Physical Exam General: Alert, In no apparent distress, Oriented x3 HEENT: Atraumatic, Normocephalic, PERRLA Neck: Supple, 2+ carotid pulse no bruit, JVD not distended Respiratory: Clear to auscultation bilaterally, Normal air movement Cardiovascular: No edema, Normal pulses, Regular rate/rhythm, Normal S1 S2 Capillary refill: <2 Seconds Gastrointestinal: Normal bowel sounds, Hyperactive Musculoskeletal: No clubbing Integumentary: No rashes, No breakdown Neurological: Normal speech, normal strength Assessment and plan Problem List: NSTEMI, severe multivessel CAD, s/p PCIx2 (05/17) Hypertension HIV positive h/o DVT NSTEMI severe multivessel CAD, s/p PCIx2 (05/17) s/p cath with severe multivessel CAD (LAD 99%, Left circumflex 100%, RCA 80%) , s/p PCIx2 (05/17). continue brilinta, statin, aspirin 81mg tentative PCI of mid LAD and distal left circ and OM1 branch will be done next week per Dr. Leon echo ordered normal EF IV heparin for 48 hours post-op EZ band in place - heparin gtt not started yet d/t bleed at insertion site; restart per Dr. Leon -requires another heart catheterization before discharge, Edward to schedule HTN -restart home medications when appropriate -monitor [id number] ANTHONY -nephrology consulted -Renal ultrasound-"No evidence of hemodynamically significant stenosis within the bilateral renal arteries" -continue to monitor in AM labs HIV positive -Patient taking his own medication h/o DVT -lovenox- hold VTE: heparin gtt not started yet d/t bleed at insertion site Code: Full Dispo: Home, 2-3 days Discharge Plan: Home Plan to discharge in: 72 Hours Time Spent Managing PTS Care (In Minutes): 35
--- NOTE | 2023-05-22 20:22 | PN ---
Date of Progress Note: 05/22/2023 Subjective: Patient was admitted to the hospital with non-ST elevation [place], status post CT with contr ast to rule out dissection. Patient's kidney function stayed stable. Physical Examination: Vital Signs: When I saw the patient, patient was lying in bed, comfortable, not in any distress. Bl ood pressure 117/71, pulse of 63, afebrile. Chest: Clear to auscultation. Heart: S1, S2. Regular. Abdomen: Soft, nontender. Extremities: No edema. Neurologic: Alert. No focality. Laboratory Data: Hemoglobin 15. Sodium 134, potassium 4.9, bicarb 24, BUN 19, creatinine 1.3, calci um 8.8. Phosphorus 3.5, magnesium 2.3. Urinalysis negative for infection. Current Medications: The patient is on include: 1.Aspirin. 2.Atorvastatin. 3.Pantoprazole. Assessment And Plan: 1.Acute kidney injury secondary to prerenal, recovered, resolved. Contrast did not relieve any cons equences. I am going to continue to monitor the patient. Patient is cleared from the Renal standpoi nt for discharge planning. 2.Chronic kidney disease, stage 3 secondary to hypertension, nephrosclerosis. Doubt to be related t o HIV as no proteinuria mostly secondary to hypertension nephrosclerosis. We will follow up. 3.Coronary artery disease, non-ST elevation myocardial infarction as by primary and Cardiology. RUBIN Voice ID: [id number] Report ID: [id number]
[2023-05-22] MEDS: DOLUTEGRAVIR PO SCH (20:48)
[2023-05-22] MEDS: RILPIVIRINE PO SCH (20:48)
[2023-05-22] MEDS: ATORVASTATIN 40 MG TAB PO SCH (20:48)
[2023-05-23 03:07] LABS: Absolute Lymphocytes (CBC) 4.8 K/uL (0.7-4.9); Hematocrit 40.6 % (39.6-49.0); Lymphocytes % 43.1 % (15.3-44.8); MCV 89.8 fL (80-100); MPV 7.8 fL (7.6-11.3); Platelets 285 thou/uL (152-406); RBC Red Blood Cell Count 4.52 M/uL (4.33-5.43)
[2023-05-23 03:18] LABS: Magnesium 2.2 mg/dL (1.6-2.4); Phosphorus 4.1 mg/dL (2.5-4.9); Potassium 4.3 mEq/L (3.5-5.1)
[2023-05-23] MEDS: PANTOPRAZOLE 40MG TABLET PO SCH (05:42)
[2023-05-23] MEDS: ASPIRIN EC 81 MG TAB PO SCH (06:47)
[2023-05-23] MEDS: TICAGRELOR 90 MG TABLET PO SCH ×2 (06:47→20:17)
--- NOTE | 2023-05-23 14:23 | P.PN ---
Subjective Date of Service: 05/23/23 Chief Complaint: chest pain, NSTEMI Subjective: No new changes 05/19: Evangelist is a wake and cheerful this AM. TR band to right wrist removed earlier this AM, swelling has reduced and is able to use hand but will keep it propped up on a pillow with minimal use to reduce bleeding. Dr. Leon plans for another heart catheterization some time this week. Patient denies fever, chills, CP, SOB, UMANA, dizziness, and abdominal pain. 05/20:Evangelist is feeling very well this morning, right hand and arm with normal ROM and swelling decreased, pulse 2+. He is NPO this AM, will follow along with Dr. Leon's recommendations. Evangelist denies fever, chills, CP, SOB, UMANA, and dizziness. 05/21: Evangelist, awake, alert, and oriented, continues to feel well today. Waiting for the next PCI, ECHO report shows normal EF of 55-60%, normal wall motion, grade 1 diastolic dysfunction. Will continue to follow Dr. Leon's recommendations. Nephrology consulted for ANTHONY and renal ultrasound conducted showing "No evidence of hemodynamically significant stenosis within the bilatera l renal arteries". Evangelist reports walking in the hallway often. Evangelist denies fever, chills, N/V/D, CP, SOB, and UMANA. 05/22: Evangelist is awake and oriented, no c/o of chest pain but feels he is having acid reflux and some SOB since his heart cath procedure 05/17, telemetery monitoring, Ambulating in the hallway several times daily. He denies CP, fever, chills, UMANA, dizziness, PND, and orthopnea. 05/23: Evangelist ambulating in his room this AM. No complaints of CP but does report some SOB at time. Reports he expects to go for the PCI today, diet changed to NPO and put on a gown. Doing well. Review of Systems 10-point ROS is otherwise unremarkable Physical Examination - Vital Signs Temperature: 97.2 F Blood Pressure: 126/80 Pulse: 73 Respirations: 16 Pulse Ox (%): 99 Assessment And Plan - Plan Physical Exam General: Alert, In no apparent distress, Oriented x3 HEENT: Atraumatic, Normocephalic, PERRLA Neck: Supple, 2+ carotid pulse no bruit, JVD not distended Respiratory: Clear to auscultation bilaterally, Normal air movement Cardiovascular: No edema, Normal pulses, Regular rate/rhythm, Normal S1 S2 Capillary refill: <2 Seconds Gastrointestinal: Normal bowel sounds, Hyperactive Musculoskeletal: No clubbing Integumentary: No rashes, No breakdown Neurological: Normal speech, normal strength Assessment and plan Problem List: NSTEMI, severe multivessel CAD, s/p PCIx2 (05/17) Hypertension HIV positive h/o DVT NSTEMI severe multivessel CAD, s/p PCIx2 (05/17) s/p cath with severe multivessel CAD (LAD 99%, Left circumflex 100%, RCA 80%) , s/p PCIx2 (05/17). continue brilinta, statin, aspirin 81mg tentative PCI of mid LAD and distal left circ and OM1 branch will be done next week per Dr. Leon echo ordered normal EF IV heparin for 48 hours post-op EZ band in place - heparin gtt not started yet d/t bleed at insertion site; restart per Dr. Leon -requires another heart catheterization before discharge, Edward to schedule HTN -restart home medications when appropriate -monitor [id number] ANTHONY -nephrology consulted -Renal ultrasound-"No evidence of hemodynamically significant stenosis within the bilateral renal arteries" -continue to monitor in AM labs HIV positive -Patient taking his own medication h/o DVT -brilinta -active ambulation -PCI today VTE: Code: Full Dispo: Home, 2-3 days Discharge Plan: Home Plan to discharge in: 24 Hours Time Spent Managing PTS Care (In Minutes): 35
[2023-05-23] MEDS: ATORVASTATIN 40 MG TAB PO SCH (20:18)
[2023-05-23] MEDS: RILPIVIRINE PO SCH (20:18)
[2023-05-23] MEDS: DOLUTEGRAVIR PO SCH (20:18)
--- NOTE | 2023-05-23 20:35 | PN ---
Date of Progress Note: 05/23/2023 Subjective: The patient was admitted to the hospital with non-ST elevation [place]. The patient had CT to rule out PE. The patient's kidney function stayed stable. No incident. Physical Examination: Vital Signs: Blood pressure 126/80, pulse of 73, afebrile. Chest: Clear to auscultation. Heart: S1, S2. Regular. Abdomen: Soft, nontender. Extremities: No edema. Neurologic: Alert. No focality. Laboratory Data: Hemoglobin 13.9. Sodium 137, potassium 4.3, bicarb 24, BUN 23, creatinine 1.4, GFR 54, calcium 8.5, phosphorus 4.1, magnesium 2.2. BNP 1300. Assessment And Plan: 1. Chronic kidney disease stage 2/3. Stable fluctuation in the kidney function. The patient had contrast on June 16, doubt to be related to the contrast. We will continue to monitor closely. I am going to start the patient on gentle hydration. 2. Hypertension, controlled optimal. Continue current treatment. 3. Coronary artery disease, non-ST elevation as by primary and Cardiology. 4. Hypertension, controlled optimal. Continue current treatment. Current Medications: The patient on include aspirin, atorvastatin, pantoprazole, Zofran. Time spent examining the patient [id number], reviewing data, lab and radiology, placing order, discussing the case with the patient, discussing the case with the clinical team manager including the hospitalist and nursing staff more than 35 minutes. RUBIN Voice ID: [id number] Report ID: [id number] KEILA
[2023-05-24] MEDS: PANTOPRAZOLE 40MG TABLET PO SCH (06:18)
[2023-05-24 07:34] LABS: Magnesium 2.3 mg/dL (1.6-2.4); Phosphorus 3.3 mg/dL (2.5-4.9)
[2023-05-24] MEDS: TICAGRELOR 90 MG TABLET PO SCH ×2 (08:36→20:09)
[2023-05-24] MEDS: ASPIRIN EC 81 MG TAB PO SCH (08:36)
--- NOTE | 2023-05-24 09:16 | P.PN ---
Subjective Date of Service: 05/24/23 Chief Complaint: chest pain, NSTEMI 05/19: Evangelist is a wake and cheerful this AM. TR band to right wrist removed earlier this AM, swelling has reduced and is able to use hand but will keep it propped up on a pillow with minimal use to reduce bleeding. Dr. Leon plans for another heart catheterization some time this week. Patient denies fever, chills, CP, SOB, UMANA, dizziness, and abdominal pain. 05/20:Evangelist is feeling very well this morning, right hand and arm with normal ROM and swelling decreased, pulse 2+. He is NPO this AM, will follow along with Dr. Leon's recommendations. Evangelist denies fever, chills, CP, SOB, UMANA, and dizziness. 05/21: Evangelist, awake, alert, and oriented, continues to feel well today. Waiting for the next PCI, ECHO report shows normal EF of 55-60%, normal wall motion, grade 1 diastolic dysfunction. Will continue to follow Dr. Leon's recommend ations. Nephrology consulted for ANTHONY and renal ultrasound conducted showing "No evidence of hemodynamically significant stenosis within the bilateral renal arteries". Evangelist reports walking in the hallway often. Evangelist denies fever, chills, N/V/D, CP, SOB, and UMANA. 05/22: Evangelist is awake and oriented, no c/o of chest pain but feels he is having acid reflux and some SOB since his heart cath procedure 05/17, telemetery monitoring, Ambulating in the hallway several times daily. He denies CP, fever, chills, UMANA, dizziness, PND, and orthopnea. 05/23: Evangelist ambulating in his room this AM. No complaints of CP but does report some SOB at time. Reports he expects to go for the PCI today, diet changed to NPO and put on a gown. Doing well. 05/24: He is waiting for PCI to LAD, he is visiting from out of town and will need to have the cath before leaving. Will reach out to Dr. Leon concerning his schedule for next week. He is doing very well. Physical Examination - Vital Signs Temperature: 97 F Blood Pressure: 96/65 Pulse: 64 Respirations: 18 Pulse Ox (%): 96 Assessment And Plan - Plan Physical Exam General: Alert, In no apparent distress, Oriented x3 HEENT: Atraumatic, Normocephalic, PERRLA Neck: Supple, 2+ carotid pulse no bruit, JVD not distended Respiratory: Clear to auscultation bilaterally, Normal air movement Cardiovascular: No edema, Normal pulses, Regular rate/rhythm, Normal S1 S2 Capillary refill: <2 Seconds Gastrointestinal: Normal bowel sounds, Hyperactive Musculoskeletal: No clubbing Integumentary: No rashes, No breakdown Neurological: Normal speech, normal strength Assessment and plan Problem List: NSTEMI, severe multivessel CAD, s/p PCIx2 (05/17) Hypertension HIV positive h/o DVT NSTEMI severe multivessel CAD, s/p PCIx2 (05/17) s/p cath with severe multivessel CAD (LAD 99%, Left circumflex 100%, RCA 80%) , s/p PCIx2 (05/17). continue brilinta, statin, aspirin 81mg tentative PCI of mid LAD and distal left circ and OM1 branch will be done next week per Dr. Leon echo ordered normal EF IV heparin for 48 hours post-op -requires another heart catheterization before discharge, Edward to schedule HTN -restart home medications when appropriate -monitor [id number] ANTHONY -nephrology consulted -Renal ultrasound-"No evidence of hemodynamically significant stenosis within the bilateral renal arteries" -continue to monitor in AM labs HIV positive -Patient taking his own medication h/o DVT -brilinta -active ambulation -PCI today VTE: Code: Full Dispo: Home, 2-3 days Time Spent Managing PTS Care (In Minutes): 35
--- NOTE | 2023-05-24 15:27 | P.PN ---
Subjective Date of Service: 05/24/23 Chief Complaint: chest pain, NSTEMI Subjective: No new changes Physical Examination - Vital Signs Temperature: 97.5 F Blood Pressure: 117/73 Pulse: 61 Respirations: 16 Pulse Ox (%): 98 - Physical Exam General: Other (appears his stated age) HEENT: Atraumatic, Normocephalic Neck: Supple Respiratory: Other (symmetric chest expansion) Cardiovascular: No rubs, No murmurs Gastrointestinal: Soft and benign Musculoskeletal: No clubbing Integumentary: No warmth Neurological: Normal tone Urinary: Other (no bladder distention) External genitalia: Deferred Rectal: Deferred Assessment And Plan - Plan 1. Chronic kidney disease stage 2/3. Stable fluctuation in the kidney function. The patient received IVcontrast on May 17, doubt to be related to the contrast. We will continue to monitor closely. IV/PO hydration. 2. Hypertension, controlled optimal. Continue current medication regimen. 3. Coronary artery disease, non-ST elevation [place]. S/p LHC on 05/17. Per Cardiology. 4. HypoNa. Improved. Monitor
[2023-05-24] MEDS: DOLUTEGRAVIR PO SCH (20:08)
[2023-05-24] MEDS: ATORVASTATIN 40 MG TAB PO SCH (20:08)
[2023-05-24] MEDS: RILPIVIRINE PO SCH (20:08)
[2023-05-25] MEDS: PANTOPRAZOLE 40MG TABLET PO SCH (05:44)
[2023-05-25] MEDS: TICAGRELOR 90 MG TABLET PO SCH ×2 (08:10→20:20)
[2023-05-25] MEDS: ASPIRIN EC 81 MG TAB PO SCH (08:10)
--- NOTE | 2023-05-25 08:35 | P.PN ---
Subjective Date of Service: 05/25/23 Chief Complaint: chest pain, NSTEMI Subjective: No new changes 05/19: Evangelist is a wake and cheerful this AM. TR band to right wrist removed earlier this AM, swelling has reduced and is able to use hand but will keep it propped up on a pillow with minimal use to reduce bleeding. Dr. Leon plans for another heart catheterization some time this week. Patient denies fever, chills, CP, SOB, UMANA, dizziness, and abdominal pain. 05/20:Evangelist is feeling very well this morning, right hand and arm with normal ROM and swelling decreased, pulse 2+. He is NPO this AM, will follow along with Dr. Leon's recommendations. Evangelist denies fever, chills, CP, SOB, UMANA, and dizziness. 05/21: Evangelist, awake, alert, and oriented, continues to feel well today. Waiting for the next PCI, ECHO report shows normal EF of 55-60%, normal wall motion, grade 1 diastolic dysfunction. Will continue to follow Dr. Leon's recommendations. Nephrology consulted for ANTHONY and renal ultrasound conducted showing "No evidence of hemodynamically significant stenosis within the bilatera l renal arteries". Evangelist reports walking in the hallway often. Evangelist denies fever, chills, N/V/D, CP, SOB, and UMANA. 05/22: Evangelist is awake and oriented, no c/o of chest pain but feels he is having acid reflux and some SOB since his heart cath procedure 05/17, telemetery monitoring, Ambulating in the hallway several times daily. He denies CP, fever, chills, UMANA, dizziness, PND, and orthopnea. 05/23: Evangelist ambulating in his room this AM. No complaints of CP but does report some SOB at time. Reports he expects to go for the PCI today, diet changed to NPO and put on a gown. Doing well. 05/24: He is waiting for PCI to LAD, he is visiting from out of town and will need to have the cath before leaving. Will reach out to Dr. Leon concerning his schedule for next week. He is doing very well. 05/25: Evangelist is in stable condition but with staged PCI started and needing the LAD to be stented will remain in the hospital until the cath labs is available to proceed. Significant LAD disease per Dr Leon. He denies CP, SOB, fever, chills, and UMANA. Physical Examination - Vital Signs Temperature: 97.5 F Blood Pressure: 117/73 Pulse: 61 Respirations: 16 Pulse Ox (%): 98 Assessment And Plan - Plan Physical Exam General: Alert, In no acute distress, Oriented x3 HEENT: Atraumatic, Normocephalic, PERRLA Neck: Supple, 2+ carotid pulse no bruit, JVD not distended Respiratory: Clear to auscultation bilaterally, Normal air movement Cardiovascular: No edema, Normal pulses, Regular rate/rhythm, Normal S1 S2 Capillary refill: <2 Seconds Gastrointestinal: Normal bowel sounds, Hyperactive Musculoskeletal: No clubbing Integumentary: No rashes, No breakdown Neurological: Normal speech, normal strength Assessment and plan Problem List: NSTEMI, severe multivessel CAD, s/p PCIx2 (05/17) Hypertension HIV positive h/o DVT NSTEMI severe multivessel CAD, s/p PCIx2 (05/17) s/p cath with severe multivessel CAD (LAD 99%, Left circumflex 100%, RCA 80%) , s/p PCIx2 (05/17). continue brilinta, statin, aspirin 81mg tentative PCI of mid LAD and distal left circ and OM1 branch will be done next week per Dr. Leon echo ordered normal EF IV heparin for 48 hours post-op -requires another heart catheterization before discharge for significant LAD disease, Edward to schedule HTN -restart home medications when appropriate -monitor [id number] ANTHONY -nephrology consulted -Renal ultrasound-"No evidence of hemodynamically significant stenosis within the bilateral renal arteries" -continue to monitor in AM labs HIV positive -Patient taking his own medication h/o DVT -brilinta -active ambulation -PCI today VTE: Code: Full Dispo: Home, 2-3 days Discharge Plan: Home
--- NOTE | 2023-05-25 10:17 | PN ---
Date of Progress Note: 05/25/2023 Subjective: The patient was admitted to the hospital with acute kidney injury. The patient had cont rast exposure on the . Kidney function stayed stable. Physical Examination: General: When I saw the patient, the patient was comfortable, not in any distress. Vital Signs: Blood pressure 117/73, pulse of 61, afebrile. Chest: Clear to auscultation. Heart: S1, S2. Regular. Abdomen: Soft, nontender. Extremities: No edema. Neurologic: Alert. No focality. Laboratory Data: WBC 11.1, hemoglobin 13.9. Sodium 137, potassium 4.3, bicarb 24, BUN 23, creatinin e 1.4, GFR 54. Calcium 8.5, phosphorus 4.1, magnesium 2.2. Current Medications: The patient is on, include: 1.Aspirin. 2.Brilinta. 3.Atorvastatin. 4.Pantoprazole. Assessment And Plan: 1.Acute kidney injury secondary to poor perfusion, acute tubular necrosis. Doubt to have any contra st component as we passed the time. I am going to go ahead and follow another kidney function for to varun and we will follow up. 2.Hypertension, controlled, optimal. 3.Coronary artery disease, [id number] myocardial infarction, as per Cardiology and Primary. RUBIN Voice ID: [id number] Report ID: [id number]
[2023-05-25] MEDS: ATORVASTATIN 40 MG TAB PO SCH (20:20)
[2023-05-25] MEDS: RILPIVIRINE PO SCH (20:21)
[2023-05-25] MEDS: DOLUTEGRAVIR PO SCH (20:21)
[2023-05-26 04:01] LABS: Albumin 3.1 g/dL (3.4-5.0); Phosphorus 3.1 mg/dL (2.5-4.9); Potassium 4.3 mEq/L (3.5-5.1)
[2023-05-26] MEDS: PANTOPRAZOLE 40MG TABLET PO SCH (06:09)
[2023-05-26] MEDS: TICAGRELOR 90 MG TABLET PO SCH ×2 (08:35→19:21)
[2023-05-26] MEDS: ASPIRIN EC 81 MG TAB PO SCH (08:35)
--- NOTE | 2023-05-26 08:52 | P.PN ---
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 TR band to right wrist removed earlier this AM, swelling has reduced and is able to use hand but will keep it propped up on a pillow with minimal use to reduce bleeding. Dr. Leon plans for another heart catheterization some time this week. Patient denies fever, chills, CP, SOB, UMANA, dizziness, and abdominal pain. 05/20:Evangelist is feeling very well this morning, right hand and arm with normal ROM and swelling decreased, pulse 2+. He is NPO this AM, will follow along with Dr. Leon's recommendations. Evangelist denies fever, chills, CP, SOB, UMANA, and dizziness. 05/21: Evangelist, awake, alert, and oriented, continues to feel well today. Waiting for the next PCI, ECHO report shows normal EF of 55-60%, normal wall motion, grade 1 diastolic dysfunction. Will continue to follow Dr. Leon's recommend ations. Nephrology consulted for ANTHONY and renal ultrasound conducted showing "No evidence of hemodynamically significant stenosis within the bilateral renal arteries". Evangelist reports walking in the hallway often. Evangelist denies fever, chills, N/V/D, CP, SOB, and UMANA. 05/22: Evangelist is awake and oriented, no c/o of chest pain but feels he is having acid reflux and some SOB since his heart cath procedure 05/17, telemetery monitoring, Ambulating in the hallway several times daily. He denies CP, fever, chills, UMANA, dizziness, PND, and orthopnea. 05/23: Evangelist ambulating in his room this AM. No complaints of CP but does report some SOB at time. Reports he expects to go for the PCI today, diet changed to NPO and put on a gown. Doing well. 05/24: He is waiting for PCI to LAD, he is visiting from out of town and will need to have the cath before leaving. Will reach out to Dr. Leon concerning his schedule for next week. He is doing very well. 05/25: Evangelist is in stable condition but with staged PCI started and needing the LAD to be stented will remain in the hospital until the cath labs is available to proceed. Significant LAD disease per Dr Leon. He denies CP, SOB, fever, chills, and UMANA. 05/26: Evangelist continues to be in stable condition, waiting for the staged PCI to be completed, Will touch base with Dr. Leon concerning scheduling. Physical Examination - Vital Signs Temperature: 97.4 F Blood Pressure: 114/67 Pulse: 63 Respirations: 18 Pulse Ox (%): 97 Assessment And Plan - Plan Physical Exam General: Alert, In no acute distress, Oriented x3 HEENT: Atraumatic, Normocephalic, PERRLA Neck: Supple, 2+ carotid pulse no bruit, JVD not distended Respiratory: Clear to auscultation bilaterally, Normal air movement Cardiovascular: No edema, Normal pulses, Regular rate/rhythm, Normal S1 S2 Capillary refill: <2 Seconds Gastrointestinal: Normal bowel sounds, Hyperactive Musculoskeletal: No clubbing Integumentary: No rashes, No breakdown Neurological: Normal speech, normal strength Assessment and plan Problem List: NSTEMI, severe multivessel CAD, s/p PCIx2 (05/17) Hypertension HIV positive h/o DVT NSTEMI severe multivessel CAD, s/p PCIx2 (05/17) s/p cath with severe multivessel CAD (LAD 99%, Left circumflex 100%, RCA 80%) , s/p PCIx2 (05/17). continue brilinta, statin, aspirin 81mg tentative PCI of mid LAD and distal left circ and OM1 branch will be done next week per Dr. Leon echo ordered normal EF IV heparin for 48 hours post-op -requires another heart catheterization before discharge for significant LAD disease, Dr. Leon to schedule HTN -restart home medications when appropriate -monitor [id number] ANTHONY -nephrology consulted -Renal ultrasound-"No evidence of hemodynamically significant stenosis within the bilateral renal arteries" -continue to monitor in AM labs HIV positive -Patient taking his own medication h/o DVT -brilinta -active ambulation VTE: Code: Full Dispo: Home, 2-3 days Discharge Plan: Home Plan to discharge in: 48 Hours Time Spent Managing PTS Care (In Minutes): 35
--- NOTE | 2023-05-26 15:54 | PN ---
Date of Progress Note: 05/26/2023 Subjective: The patient was admitted with the cardiac event. Patient waiting for ICD eval. The patient had acute kidney injury, had contrast. Kidney function has normalized. Physical Examination: Vital Signs: Blood pressure 118/71, pulse of 68, afebrile. Chest: Clear to auscultation. Heart: S1, S2. Regular. Abdomen: Soft, nontender. Extremity: No edema. Neurologic: Alert. No focality. Laboratory Data: Hemoglobin 13.9, sodium 137, potassium 4.3, bicarb 23, BUN 20, creatinine 1.3, GFR of 59, calcium 8.4, phosphorus 3.1, albumin 3.1, corrected calcium is 9.2. Current Medications: The patient on include Brilinta, aspirin, atorvastatin, pantoprazole. Assessment And Plan: 1. Acute kidney injury secondary to hypertension and cardiorenal syndrome. Contrast has been ruled out, back to baseline, stable. We will continue to monitor. 2. Hypertension, controlled, optimal. Continue current treatment. 3. HIV. Continue as by primary. Continue current treatment. I doubt to have any FSGS component to his kidney as there is no proteinuria and kidney function had been stable. 4. Cardiac arrhythmia. Follow up with cardiology. Time spent examining the patient [id number], reviewing data, lab and radiology, placing order, discussing the case with the patient, discussing the case with the garment steamer including the hospitalist and nursing staff more than 35 minutes. RUBIN Voice ID: [id number] Report ID: [id number] KEILA
[2023-05-26] MEDS: ATORVASTATIN 40 MG TAB PO SCH (19:21)
[2023-05-26] MEDS: RILPIVIRINE PO SCH (21:00)
[2023-05-26] MEDS: DOLUTEGRAVIR PO SCH (21:00)
[2023-05-27] MEDS: PANTOPRAZOLE 40MG TABLET PO SCH (05:56)
[2023-05-27] MEDS: ASPIRIN EC 81 MG TAB PO SCH (08:28)
[2023-05-27] MEDS: TICAGRELOR 90 MG TABLET PO SCH ×2 (08:28→20:11)
--- NOTE | 2023-05-27 10:45 | P.PN ---
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 TR band to right wrist removed earlier this AM, swelling has reduced and is able to use hand but will keep it propped up on a pillow with minimal use to reduce bleeding. Dr. Leon plans for another heart catheterization some time this week. Patient denies fever, chills, CP, SOB, UMANA, dizziness, and abdominal pain. 05/20:Evangelist is feeling very well this morning, right hand and arm with normal ROM and swelling decreased, pulse 2+. He is NPO this AM, will follow along with Dr. Leon's recommendations. Evangelist denies fever, chills, CP, SOB, UMANA, and dizziness. 05/21: Evangelist, awake, alert, and oriented, continues to feel well today. Waiting for the next PCI, ECHO report shows normal EF of 55-60%, normal wall motion, grade 1 diastolic dysfunction. Will continue to follow Dr. Leon's recommendations. Nephrology consulted for ANTHONY and renal ultrasound conducted showing "No evidence of hemodynamically significant stenosis within the bilatera l renal arteries". Evangelist reports walking in the hallway often. Evangelist denies fever, chills, N/V/D, CP, SOB, and UMANA. 05/22: Evangelist is awake and oriented, no c/o of chest pain but feels he is having acid reflux and some SOB since his heart cath procedure 05/17, telemetery monitoring, Ambulating in the hallway several times daily. He denies CP, fever, chills, UMANA, dizziness, PND, and orthopnea. 05/23: Evangelist ambulating in his room this AM. No complaints of CP but does report some SOB at time. Reports he expects to go for the PCI today, diet changed to NPO and put on a gown. Doing well. 05/24: He is waiting for PCI to LAD, he is visiting from out of town and will need to have the cath before leaving. Will reach out to Dr. Leon concerning his schedule for next week. He is doing very well. 05/25: Evangelist is in stable condition but with staged PCI started and needing the LAD to be stented will remain in the hospital until the cath labs is available to proceed. Significant LAD disease per Dr Leon. He denies CP, SOB, fever, chills, and UMANA. 05/26: Evangelist continues to be in stable condition, waiting for the staged PCI to be completed, Will touch base with Dr. Leon concerning scheduling. 05/27: Evangelist is awake, no events overnight, no new changes since the PCI 05/17, He does express the need to go back to work. Will reach out to Dr. Leon for ability to perform the PCI this week. He denies SOB, CP, fever, chills, UMANA, and abdominal pain. He is afebrile, BP and HR stable, ambulating independently. Review of Systems 10-point ROS is otherwise unremarkable Physical Examination - Vital Signs Temperature: 97.2 F Blood Pressure: 114/75 Pulse: 64 Respirations: 16 Pulse Ox (%): 96 Assessment And Plan - Plan Physical Exam General: Alert, In no acute distress, Oriented x3 HEENT: Atraumatic, Normocephalic, PERRLA Neck: Supple, 2+ carotid pulse no bruit, JVD not distended Respiratory: Clear to auscultation bilaterally, Normal air movement Cardiovascular: No edema, Normal pulses, Regular rate/rhythm, Normal S1 S2 Capillary refill: <2 Seconds Gastrointestinal: Normal bowel sounds, Hyperactive Musculoskeletal: No clubbing Integumentary: No rashes, No breakdown Neurological: Normal speech, normal strength Assessment and plan Problem List: NSTEMI, severe multivessel CAD, s/p PCIx2 (05/17) Hypertension HIV positive h/o DVT NSTEMI severe multivessel CAD, s/p PCIx2 (05/17) s/p cath with severe multivessel CAD (LAD 99%, Left circumflex 100%, RCA 80%) , s/p PCIx2 (05/17). continue brilinta, statin, aspirin 81mg tentative PCI of mid LAD and distal left circ and OM1 branch will be done next week per Dr. Leon echo ordered normal EF IV heparin for 48 hours post-op -requires another heart catheterization before discharge for significant LAD disease, Dr. Leon to schedule HTN -restart home medications when appropriate -monitor [id number] ANTHONY -nephrology consulted -Renal ultrasound-"No evidence of hemodynamically significant stenosis within the bilateral renal arteries" -continue to monitor in AM labs HIV positive -Patient taking his own medication h/o DVT -brilinta -active ambulation VTE: Code: Full Dispo: Home, dependent on Heart cath schedule
[2023-05-27] MEDS: ACETYLCYST 20% 800 MG/4 ML VIAL PO SCH (20:08)
[2023-05-27] MEDS: NA CHLORIDE 0.9% 1,000 ML IV SCH (20:08)
[2023-05-27] MEDS ORDERED: ACETYLCYST 6,000 MG/30 ML VIAL ONE (20:12)
[2023-05-27] MEDS: DOLUTEGRAVIR PO SCH (20:17)
[2023-05-27] MEDS: RILPIVIRINE PO SCH (20:17)
[2023-05-27] MEDS: ATORVASTATIN 40 MG TAB PO SCH (20:24)
--- NOTE | 2023-05-28 02:26 | PN ---
Date of Progress Note: 05/27/2023 History Of Present Illness: The patient was admitted for acute coronary syndrome. He was found to h ave elevated troponin. He underwent cardiac catheterization and is to have cardiac catheterization i n the morning. The patient is still awaiting for ICD evaluation. Kidney function has improved to ba seline. The patient has GFR of 59 up to 63. He has history of hypertension, cardiorenal syndrome. Review of Systems: Denies chest pain, palpitation. Physical Examination: Lungs: Clear to auscultation bilaterally. Heart: S1, S2. Abdomen: Soft. Extremities: No edema. Laboratory Data: BUN 20, creatinine 1.3, GFR 59, sodium 137, potassium 4.3. Calcium 9.2, albumin 3. 1, phosphorus 3.1. Impression And Plan: 1.Hypertension, controlled. 2.Acute kidney injury secondary to cardiorenal syndrome. Contrast exposure was done before, but he did not have contrast-related nephropathy. The patient needs to continue IV fluids and Mucomyst in v iew of contrast exposure, which will be done tomorrow. 3.Human immunodeficiency virus. The patient will continue medication. The patient will be screened for proteinuria. 4.Cardiac arrhythmia, per Cardiology. MARYSE/MODL Voice ID: [id number] Report ID: [id number]
[2023-05-28 05:15] LABS: Magnesium 2.4 mg/dL (1.6-2.4)
[2023-05-28] MEDS: PANTOPRAZOLE 40MG TABLET PO SCH (05:48)
[2023-05-28] MEDS ORDERED: HEPA 1000U/500MLS 2,000 UNIT/1,000 ML BAG IV ONE (07:26)
[2023-05-28] MEDS ORDERED: LIDOCAINE 1% 20 ML MDV ONE (07:26)
[2023-05-28] MEDS: ACETYLCYST 20% 800 MG/4 ML VIAL PO SCH ×2 (08:06→20:33)
[2023-05-28] MEDS: ASPIRIN EC 81 MG TAB PO SCH (08:07)
[2023-05-28] MEDS: TICAGRELOR 90 MG TABLET PO SCH ×2 (08:07→20:33)
[2023-05-28] MEDS: NA CHLORIDE 0.9% 1,000 ML IV SCH ×2 (08:08→20:34)
--- NOTE | 2023-05-28 08:26 | P.PN ---
Date of Service: 05/28/23 Subjective: Doing okay denies SOB or chest pain no acute events overnight ROS: 10 point ROS as noted above, otherwise negative Physical Exam: GEN: Alert, oriented, NAD HEENT: Normal conjunctiva, sclera anicteric CV: Regular rate and rhythm, no edema Pulm: Nonlabored respirations on room air ABD: Soft, nontender, nondistended Neuro: Normal speech, normal affect vitals reviewed Problem List: NSTEMI, severe multivessel CAD, s/p PCIx2 (05/17) ANTHONY Hypertension HIV positive h/o DVT NSTEMI severe multivessel CAD, s/p PCIx2 (05/17) s/p cath with severe multivessel CAD (LAD 99%, Left circumflex 100%, RCA 80%) , s/p PCIx2 (05/17). continue brilinta, statin, aspirin 81mg tentative PCI of mid LAD and distal left circ and OM1 branch will be this week echo ordered normal EF requires another heart catheterization before discharge for significant LAD disease, Dr. Leon to schedule ANTHONY likely secondary to cardiorenal syndrome nephrology consulted Renal u/s (05/20): No evidence of hemodynamically significant stenosis within the bilateral renal arteries continue to monitor in AM labs continue IV fluids continue mucomyst Hypertension restart home medications when appropriate HIV positive continue home medications h/o DVT continue brillinta ambulate VTE: Code: Full Dispo: Home Pending another heart cath
--- NOTE | 2023-05-28 18:08 | PN ---
Date of Progress Note: 05/28/2023 Subjective: The patient was admitted to the hospital with cardiac arrhythmia, patient will undergo cardiac cath today. Patient had acute kidney injury. With the contrast, did not have any injury, it was prerenal secondary to cardiorenal, recovered, resolved. Physical Examination: Vital Signs: When I saw the patient; blood pressure 111/70, pulse of 61, afebrile. Chest: Clear to auscultation. Heart: S1, S2. Regular. Abdomen: Soft, nontender. Extremities: No edema. Neurologic: Alert. No focality. Laboratory Data: Hemoglobin 13.9, sodium 136, potassium 5, bicarb 28, BUN 18, creatinine 1.5, GFR of 52, calcium 8.9, magnesium 2.4. Current Medications: The patient on, include: 1. Aspirin. 2. Brilinta. 3. tylenol 4. Pantoprazole. 5. Normal saline. Assessment And Plan: 1. Acute kidney injury, possible secondary to contrast induced nephropathy. We will follow up after cardiac cath. 2. Hypertension, controlled, optimal. 3. HIV. No significant proteinuria. Does not look that he has any HIV related nephropathy. We will continue current HIV medication. 4. Coronary artery disease. We will follow up with cardiology, status post cardiac cath. Time spent examining the patient [id number], reviewing data, lab and radiology, placing order, discussing the case with the patient, discussing the case with the steam oven operator including the hospitalist and nursing staff more than 35 minutes. RUBIN Voice ID: [id number] Report ID: [id number] KEILA
[2023-05-28] MEDS: ATORVASTATIN 40 MG TAB PO SCH (20:32)
[2023-05-28] MEDS: RILPIVIRINE PO SCH (20:33)
[2023-05-28] MEDS: DOLUTEGRAVIR PO SCH (20:33)
[2023-05-29 03:59] LABS: Magnesium 2.2 mg/dL (1.6-2.4); Potassium 4.3 mEq/L (3.5-5.1)
[2023-05-29] MEDS: TICAGRELOR 90 MG TABLET PO SCH (06:09)
[2023-05-29] MEDS: ASPIRIN EC 81 MG TAB PO SCH (06:09)
[2023-05-29] MEDS: ACETYLCYST 20% 800 MG/4 ML VIAL PO SCH (06:09)
[2023-05-29] MEDS ORDERED: MIDAZOLAM HCL 2 MG/2 ML INJ ONE (06:19)
[2023-05-29] MEDS ORDERED: FENTANYL CITR 100 MCG/2 ML ONE (06:19)
[2023-05-29] MEDS ORDERED: LIDOCAINE 1% 20 ML MDV ONE (06:19)
[2023-05-29] MEDS ORDERED: HEPA 1000U/500MLS 2,000 UNIT/1,000 ML BAG IV ONE (06:19)
[2023-05-29] MEDS ORDERED: CLOPIDOGREL 75 MG TABLET ONE (06:20)
[2023-05-29] MEDS ORDERED: HEPARIN 10,000 UNIT/10 ML VIAL IV ONE (06:20)
[2023-05-29] MEDS ORDERED: VERAPAMIL HCL 10 MG/4 ML VIAL IV ONE (06:20)
[2023-05-29] MEDS ORDERED: ASPIRIN 325 MG TAB ONE (06:20)
[2023-05-29] MEDS ORDERED: HEPARIN 5000 UNIT/ML 1 ML VIAL ONE (06:20)
[2023-05-29] MEDS ORDERED: ATROPINE SULF 1 MG/10 ML SYR IV ONE (06:21)
[2023-05-29] MEDS ORDERED: TICAGRELOR 90 MG TABLET PO ONE (06:21)
[2023-05-29] MEDS: PANTOPRAZOLE 40MG TABLET PO SCH (06:30)
[2023-05-29] MEDS ORDERED: NA CHLORIDE 0.9% 500 ML ONE (06:45)
--- NOTE | 2023-05-29 07:21 | P.PN ---
Date of Service: 05/29/23 Subjective: no acute events overnight s/p cath & PCI today slight chest discomfort during/after cath ROS: 10 point ROS as noted above, otherwise negative Physical Exam: GEN: Alert, oriented, NAD HEENT: Normal conjunctiva, sclera anicteric CV: Regular rate and rhythm, no edema Pulm: Nonlabored respirations on room air ABD: Soft, nontender, nondistended Neuro: Normal speech, normal affect vitals reviewed Problem List: severe multivessel CAD, s/p PCIx2 (05/17), PCIx1 (05/29) ANTHONY, CKD3 Hypertension HIV positive h/o DVT h/o PAD NSTEMI severe multivessel CAD, s/p PCIx2 (05/17), PCIx1 (05/29) s/p cath with severe multivessel CAD (LAD 99%, Left circumflex 100%, RCA 80%) , s/p PCIx2 (05/17). was on brilinta, statin, aspirin 81mg after 1st cath change to plavix with load 300mg 05/29, 75mg daily tomorrow echo : normal EF s/p PCI mid LAD stenosis (05/29) Staged PCI of the left circumflex at a later time per Dr. Leon triple therapy for at least 1 month ANTHONY, CKD3 likely secondary to cardiorenal syndrome nephrology consulted Renal u/s (05/20): No evidence of hemodynamically significant stenosis within the bilateral renal arteries continue to monitor in AM labs s/p IVF yamile-op for renal protection, s/p contrast now twice continue mucomyst repeat in AM Hypertension restart home medications when appropriate HIV positive continue home medications h/o DVT restart eliquis at 2.5mg 05/30; decreased from 5mg Code: Full Dispo: Home tomorrow
--- NOTE | 2023-05-29 08:09 | OP ---
Date of Procedure: 05/29/2023 Surgeon: ASHLEIGH COHEN Procedures Performed: 1.Left coronary angiogram. 2.PCI of severe mid LAD disease. I used 2.75 x 20 mm Synergy drug-eluting stent. Indication: Non-ST elevation myocardial infarction. Access: Right radial artery 6-Belarusian closed with TR band. Complications: None. Bleeding: Less than 20 mL. Description Of Procedure: After risks, benefits, and alternatives were explained, patient agreed to procedure and signed informal consent. Patient was brought into the cardiac catheterization laborato ry, prepped and draped in the usual sterile fashion. We then accessed the right radial artery using pediatric micropuncture kit and placed a 6-Bel[place]ian slender sheath and took a 6-Bel[place]ian EBU 3.5 guide in to the aortic root and engaged the left main, took standard views. I gave systemic heparin to assure ACT level above 250, took short Runthrough wire into the LAD, placed it distally and mid LAD lesion was pre-dilated using 2.5 x 12 mm Compliant balloon to high pressure and then placed a 2.75 x 20 mm S ynergy drug-eluting stent with excellent expansion and good results. I then removed the wire. Final angiogram was satisfactory. I then removed the guide and sheath, placed TR band with good hemostasi s. Findings: 1.Left main normal. 2.The proximal LAD is normal. Mid LAD is 80%, status post PCI as above and diagonal 1 branch stent is patent. 3.The circumflex is large and dominant. Proximal stent is patent. Distal stent is patent. The mid segment has a focal 70% stenosis. 4.RCA was not injected. Conclusion: Successful PCI of mid LAD stenosis. Plan: 1.Aspirin, Brilinta, and statin. 2.Staged PCI of the left circumflex at a later time. SR/MODL Voice ID: [id number] Report ID: [id number]
--- NOTE | 2023-05-29 16:15 | PN ---
Date of Progress Note: 05/29/2023 Subjective: The patient was admitted to the hospital with acute kidney injury, [id number] PR. Patient is status post cardiac cath yesterday, tolerated well. Physical Examination: Vital Signs: Blood pressure 142/100, pulse of 75, afebrile. Chest: Clear to auscultation. Heart: S1, S2, regular. Abdomen: Soft, nontender. Extremities: No edema. Neurologic: Alert. No focality. Laboratory Data: The patient had cardiac cath with mid LAD stenting. Hemoglobin 13.9. Sodium 140, potassium 4.3, bicarb 24, BUN 18, creatinine 1.4, GFR 56, calcium 8.4. Current Medications: The patient on include , Brilinta, aspirin, Zofran, atorvastatin. Assessment And Plan: 1.Acute kidney injury secondary to cardiorenal, recovered, resolved. Exposure for contrast yesterday , creatinine stayed stable. I am going to discontinue IV fluid. The patient is going to need follow up in 2-3 weeks with chemistry. 2.Non-ST elevation myocardial infarction, status post PTCA. We will follow up with Cardiology. MANNY/FIDE Voice ID: [id number] Report ID: [id number]
[2023-05-29] MEDS ORDERED: CLOPIDOGREL 75 MG TABLET PO ONE ×2 (18:00→19:00)
[2023-05-29] MEDS: RILPIVIRINE PO SCH (21:00)
[2023-05-29] MEDS: DOLUTEGRAVIR PO SCH (21:00)
[2023-05-29] MEDS: ATORVASTATIN 40 MG TAB PO SCH (21:00)
[2023-05-30 01:53] VITALS: O2SAT 97
[2023-05-30 03:37] LABS: Albumin 3.4 g/dL (3.4-5.0); Potassium 4.2 mEq/L (3.5-5.1)
[2023-05-30 05:16] VITALS: TEMP 97.5
[2023-05-30] MEDS: PANTOPRAZOLE 40MG TABLET PO SCH (05:49)
--- NOTE | 2023-05-30 07:48 | P.DS ---
Admission Date: 05/17/23 Discharge Date: 05/30/23 Disposition: ROUTINE DISCHARGE Discharge Condition: GOOD Reason for Admission: chest pain, NSTEMI Consultations: Cardiology - Dr. Leon Nephrology - Dr. Smith, Dr. Thornton-Kirit Brief History of Present Illness: 57yo M, PMH: hypertension, coronary artery disease, CT x2, 5 stents, history of clots, chronic pain with neuropathy, HIV positive. Patient presented to ED with severe chest pain, nausea, vomiting and dizziness. Patient generally goes to [facility] in [facility], but is visiting on vacation. Patient states he takes aspirin 81 mg daily and Eliquis 5 mg p.o. twice daily. Patient states pain is midsternal and is a burning component, with diaphoresis at home, patient denies shortness of breath. Troponin series of 282.1 and redraw of 8865.6. EKG showing bradycardia at 45 beats per minute, no ectopy, no ST elevation or depression. Initial vital signs of BP 145/89, heart rate 49 respirations 19 temperature 98.5, pulse ox 100% on room air. On examination patient was distressed and uncomfortable with little pain relief using morphine. Dr. Leon consulted and agreed for admission, PCI planned. Patient will be admitted for NSTEMI, further work-up, heart cath, and stabilization. Hospital Course: Problem List: severe multivessel CAD, s/p PCIx2 (05/17), PCIx1 (05/29) ANTHONY, CKD3 Hypertension HIV positive h/o DVT h/o PAD Patient presented to ED with severe chest pain, nausea, vomiting and dizziness. Troponins elevated during hospitalization (20.8 -> 281 -> 8865). Cardiology was consulted. Patient was taken urgently to the cardiac catheterization on 05/17 where he was found to have severe multivessel CAD and underwent [address] Leon (operative reports below) Repeat echo post PCI with 57% EF. Patients hospitalization was prolonged due to needing a 3rd PCI. Patient underwent successful PCI of the mid LAD stenosis on 05/29. Patient was monitored post operatively and deemed stable for discharge home. Recommend close follow up with cardiology in [address] Leon plans for Staged PCI of the left circumflex at a later time - can discuss as outpatient with Dr. Leon/cardiology Medications: Aspirin 81mg twice a day plavix daily Eliquis 2.5 mg twice a day (lowered dose from his 5mg) - can cut 5mg in half if needed; confirmed with pharmacy that its okay Atorvastatin Patient is to take aspirin, plavix, eliquis for at least 1 month. To re-eval by Cardiology in the next 2 weeks or so to determine de-escalation at 1 month post- op. continue other home medications not listed as previously prescribed. Follow up: PCP 3-5 days Cardiology ~1 week Operative report (05/17): 1. Left main; large and normal 2. LAD; proximal segment is normal. Mid segment long 80% stenosis. Diagonal 1 branch is large branch, mid 99% stenosed, status post successful PCI and the rest of the LAD appears to be normal. 3. Left circumflex; very large and dominant. It has mid 100%, which is a culprit for the CT, status post successful PCI as above and then toward the distal, there is 80% stenosis and then there is 80% iSR in the stent that was placed distally and this artery supplies the entire inferior wall. The diagonal and the OM1 branch have proximal 99% and mid 80% stenosis. 4. RCA; very small, nondominant, diffuse 80% stenosis. 5. Elevated LVEDP of 30 mmHg. Operative report (05/29): 1. Left main normal. 2. The proximal LAD is normal. Mid LAD is 80%, status post PCI as above and diagonal 1 branch stent is patent. 3. The circumflex is large and dominant. Proximal stent is patent. Distal stent is patent. The mid segment has a focal 70% stenosis. 4. RCA was not injected Physical Exam: GEN: Alert, oriented, NAD HEENT: Normal conjunctiva, sclera anicteric CV: Regular rate and rhythm, no edema Pulm: Nonlabored respirations on room air ABD: Soft, nontender, nondistended Neuro: Normal speech, normal affect Vital Signs/Physical Exam: Temp Pulse Resp BP Pulse Ox 97.5 F 70 17 112/69 96 05/30/23 04:00 05/30/23 04:00 05/30/23 04:00 05/30/23 04:00 05/30/23 04:00 Laboratory Data at Discharge: WBC 11.10 thou/uL (4.3-10.9) H 05/23/23 02:40 Hgb 13.9 g/dL (13.6-17.9) 05/23/23 02:40 Hct 40.6 % (39.6-49.0) 05/23/23 02:40 Plt Count 285 thou/uL (152-406) 05/23/23 02:40 PT 12.2 SECONDS (9.5-12.5) 05/17/23 03:45 INR 1.11 05/17/23 03:45 APTT 37.8 SECONDS (24.3-36.9) H 05/17/23 12:20 Sodium 137 mEq/L (136-145) 05/30/23 02:01 Potassium 4.2 mEq/L (3.5-5.1) 05/30/23 02:01 BUN 16 mg/dL (7-18) 05/30/23 02:01 Creatinine 1.41 mg/dL (0.70-1.30) H 05/30/23 02:01 Glucose 115 mg/dL (74-106) H 05/30/23 02:01 Uric Acid 7.1 mg/dL (3.5-7.2) 05/20/23 12:03 Phosphorus 4.0 mg/dL (2.5-4.9) 05/30/23 02:01 Magnesium 2.2 mg/dL (1.6-2.4) 05/29/23 02:07 Total Bilirubin 0.4 mg/dL (0.2-1.0) 05/17/23 03:45 AST 41 U/L (15-37) H 05/17/23 03:45 ALT 93 U/L (16-61) H 05/17/23 03:45 Alkaline Phosphatase 66 U/L (45-117) 05/17/23 03:45 Triglycerides 228 mg/dL (<150) H 05/17/23 14:02 Cholesterol 191 mg/dL (<200) 05/17/23 14:02 HDL Cholesterol 29 mg/dL (40-60) L 05/17/23 14:02 Cholesterol/HDL Ratio 6.59 05/17/23 14:02 Lipase 76 U/L (13-75) H 05/17/23 07:13 Home Medications: Aspirin [Aspirin EC 81 MG] 81 mg PO BID 05/17/23 Dolutegravir/Rilpivirine [Juluca 50-25 mg Tablet] 1 tab PO BEDTIME 05/17/23 Fluticasone [Flonase 50MCG Nasal Pringle*] 2 sprays NS DAILY PRN 05/18/23 Apixaban [Eliquis] 1 tab PO BID 30 Days #60 tablet 05/29/23 Atorvastatin Calcium [Lipitor] 1 tab PO BEDTIME 30 Days #30 tab 05/29/23 Clopidogrel Bisulfate [Plavix*] 1 tab PO DAILY 30 Days #30 tab 05/29/23 New Medications: Apixaban [Eliquis] 1 tab PO BID 30 Days #60 tablet Atorvastatin Calcium [Lipitor] 1 tab PO BEDTIME 30 Days #30 tab Clopidogrel Bisulfate [Plavix*] 1 tab PO DAILY 30 Days #30 tab Physician Discharge Instructions: Patient presented to ED with severe chest pain, nausea, vomiting and dizziness. Troponins elevated during hospitalization (20.8 -> 281 -> 8865). Cardiology was consulted. Patient was taken urgently to the cardiac catheterization on 05/17 where he was found to have severe multivessel CAD and underwent [address] Leon (operative reports below) Repeat echo post PCI with 57% EF. Patients hospitalization was prolonged due to needing a 3rd PCI. Patient underwent successful PCI of the mid LAD stenosis on 05/29. Patient was monitored post operatively and deemed stable for discharge home. Recommend close follow up with cardiology in [address] Leon plans for Staged PCI of the left circumflex at a later time - can discuss as outpatient with Dr. Leon/cardiology Medications: Aspirin 81mg twice a day plavix daily Eliquis 2.5 mg twice a day (lowered dose from his 5mg) - can cut 5mg in half if needed; confirmed with pharmacy that its okay Atorvastatin Patient is to take aspirin, plavix, eliquis for at least 1 month. To re-eval by Cardiology in the next 2 weeks or so to determine de-escalation at 1 month post- op. continue other home medications not listed as previously prescribed. Follow up: PCP 3-5 days Cardiology ~1 week Operative report (05/17): 1. Left main; large and normal 2. LAD; proximal segment is normal. Mid segment long 80% stenosis. Diagonal 1 branch is large branch, mid 99% stenosed, status post successful PCI and the rest of the LAD appears to be normal. 3. Left circumflex; very large and dominant. It has mid 100%, which is a culprit for the CT, status post successful PCI as above and then toward the distal, there is 80% stenosis and then there is 80% iSR in the stent that was placed distally and this artery supplies the entire inferior wall. The diagonal and the OM1 branch have proximal 99% and mid 80% stenosis. 4. RCA; very small, nondominant, diffuse 80% stenosis. 5. Elevated LVEDP of 30 mmHg. Operative report (05/29): 1. Left main normal. 2. The proximal LAD is normal. Mid LAD is 80%, status post PCI as above and diagonal 1 branch stent is patent. 3. The circumflex is large and dominant. Proximal stent is patent. Distal stent is patent. The mid segment has a focal 70% stenosis. 4. RCA was not injected Time spent managing pt's care (in minutes): 45
[2023-05-30] MEDS: ASPIRIN EC 81 MG TAB PO SCH (08:19)
[2023-05-30 08:59] VITALS: BP 115/76
[2023-05-30] MEDS ORDERED: CLOPIDOGREL 75 MG TABLET PO SCH (09:00)
[2023-05-30] MEDS ORDERED: APIXABAN 2.5 MG TABLET PO SCH (09:00)
== END 2023-05-30 09:45 | disposition home or self-care (01) | DRG 246 ==
LOC: ER 03:26 → ERHOLD 07:58 → 3RD-ICU 18:38 → 2ND 05-18 21:27
PROVIDERS: ADMIT Hospitalist; ATTEND Hospitalist
PROC: 027135Z Dilation of Coronary Artery, Two Arteries with Two Drug-eluting Intraluminal Devices, Percutaneous Approach (ICD-10-PCS; principal; 2023-05-17)
PROC: 4A023N7 Measurement of Cardiac Sampling and Pressure, Left Heart, Percutaneous Approach (ICD-10-PCS; 2023-05-17)
PROC: B2111ZZ Fluoroscopy of Multiple Coronary Arteries using Low Osmolar Contrast (ICD-10-PCS; 2023-05-17)
PROC: 027034Z Dilation of Coronary Artery, One Artery with Drug-eluting Intraluminal Device, Percutaneous Approach (ICD-10-PCS; 2023-05-29)
PROC: 4A023N7 Measurement of Cardiac Sampling and Pressure, Left Heart, Percutaneous Approach (ICD-10-PCS; 2023-05-29)
PROC: B2111ZZ Fluoroscopy of Multiple Coronary Arteries using Low Osmolar Contrast (ICD-10-PCS; 2023-05-29)
DX: I21.4 Non-ST elevation (NSTEMI) myocardial infarction (principal); N17.0 Acute kidney failure with tubular necrosis; E87.1 Hypo-osmolality and hyponatremia; E78.5 Hyperlipidemia, unspecified; I73.9 Peripheral vascular disease, unspecified; I12.9 Hypertensive chronic kidney disease with stage 1 through stage 4 chronic kidney disease, or unspecified chronic kidney disease; N18.30 Chronic kidney disease, stage 3 unspecified; I25.10 Atherosclerotic heart disease of native coronary artery without angina pectoris; I25.2 Old myocardial infarction; R94.4 Abnormal results of kidney function studies; Z21 Asymptomatic human immunodeficiency virus [HIV] infection status; Z88.2 Allergy status to sulfonamides; Z95.5 Presence of coronary angioplasty implant and graft; Z79.82 Long term (current) use of aspirin; Z79.01 Long term (current) use of anticoagulants; Z79.02 Long term (current) use of antithrombotics/antiplatelets; Z86.718 Personal history of other venous thrombosis and embolism; Z87.891 Personal history of nicotine dependence
CPT/HCPCS: 36415; 71045; 71275; 74175; 76937; 80048; 80061; 80069; 80076; 81003; 82043; 82550; 82570; 83690; 83735; 83880; 84100; 84156; 84443; 84484; 84550; 85025; 85347; 85610; 85730; 92928; 93005; 93306; 93454; 93458; 93975; 96361; 96372; 96374; 96375; 99285; C1725; C1893; J0461; J1644; J1650; J1940; J2001; J2250; J2270; J2405; J2765; J3010; J7030; J7040; J7608; Q9966; Q9967